=== PATIENT | female | born 1945 | race Caucasian/White ===

== ENCOUNTER 2017-01-15 07:00 | Inpatient (IN) | payer OTHER, MEDICARE ==
[~2017-01-15] VITALS: Ht 152.4 cm; Wt 102.1 kg
[~2017-01-15 07:00] MED LIST: ACETAMINOPHEN/H1 TAB PO; ALBUTEROL0.09 MG/A1 INH; ATORVASTATIN CA20 MG PO; BUFFERIN LOW DO81 MG PO; COUMADIN 2.5 M2.5 MG PO; COUMADIN 5 MG TA5 MG PO; COZAAR 50MG TAB50 MG PO; DOK100 M1 PO; ESCITALOPRAM10 MG PO; GABAPENTIN TAB600 MG PO; MASON NATURAL325 MG PO; METFORMIN HCL500 M4 PO; METOPROLOL SUCC50 M1 PO; PREDNISONE 10MG10 M1 PO; TYLENOL TAB 32325 MG PO; ULTRAM(MONOGRAP50 MG PO; VITAB121000 SL; VITAMIN D3 202000 IU PO; VITAMIN D32000 IU PO
[2017-02-16] MEDS ORDERED: ASPIRIN325 M2 PO (14:04)
[2017-02-16] MEDS ORDERED: GABAPENTIN600 M1 PO (14:04)
[2017-02-16] MEDS ORDERED: ESCITALOPRAM OX20 MG PO (14:05)
[2017-02-16] MEDS ORDERED: ATORVASTATIN CA40 M1 PO (14:05)
--- NOTE | 2017-02-20 11:19 | Admission Core Measures ---
Admission Meds I reviewed the following Meds: Current Medications Sig/Marion Start time Last Medication Dose Stop Time Status Admin Hydromorphone HCl 2 MG Q4P PRN 02/20 1030 UNVr (Dilaudid) Morphine Sulfate 2 MG Q4P PRN 02/20 1030 AC (Morphine) Ondansetron HCl 4 MG Q6P PRN 02/20 1030 AC (Zofran) Phenylephrine HCl 40 MG Q16H PRN 02/20 1115 AC (Neosynephrine Drip (Phenylephrine)) Sodium Chloride 250 ML (Normal Saline 0.9%) Sodium Chloride 1,000 ML Q13H 02/20 1030 AC (Normal Saline 0.9%) Sodium Nitroprusside 50 MG Q24H PRN 02/20 1115 AC (Nipride (Nitroprusside) DRIP) Dextrose/Water 250 ML (Dextrose 5%) Acute Coronary Syndrome Inclusion Criteria ACS Diagnosis No Inpatient Core Measures LDL Reminder: If No, please order W/I first 24hr of stay Congestive Heart Failure Inclusion Criteria CHF Diagnosis No Cerebrovascular accident Inclusion Criteria CVA/TIA Diagnosis No Inpatient Core Measures Bedside Swallow Eval Reminder: If BSE failed, place ST order Antithrombotic Reminder: Order Antithrombotic Medication by end of day 2 Antithrombotic Reminder: Document Reason Antithrombotic Not ordered by end of day 2 AFIB/Flutter Reminder: If Present, add to problem list AFIB/Flutter Reminder: Order Anticoag Medication for pts with AFIB/Flutter Atherosclerosis Reminder: If Present, add to problem list LDL Reminder: If No, please order W/I first 24hr of stay PT Order Reminder: If No, please order Venous thromboembolism Inpatient Core Measures VTE Risk Factors: Age > 40, Surgery No [facility] VTE prophylaxis d/t No contraindications No VTE Pharm Prophylaxis d/t No contraindications Inclusion Criteria - Per Current guidelines, there needs to be overlap - treatment for the first 5 days of Warfarin therapy. - Parenteral Anticoagulation (IV or SC) needs to be - given along with Warfarin therapy. VTE Diagnosis No VTE Type NONE VTE Confirmed by (Test) NONE Problem List As ranked by this Provider includes Assessment & Plan 1. Carotid stenosis HOME MEDS Home Med List Aspirin (Aspirin*) 325 MG TABLET 1 TAB PO DAILY CAD (Reported) Atorvastatin Calcium 40 MG TABLET 1 TAB PO DAILY CHOLESTEROL (Reported) Escitalopram Oxalate 20 MG TABLET 1 TAB PO DAILY ANXIETY (Reported) Gabapentin 600 MG TABLET 1 TAB PO NIGHTLY NEUROPATHY (Reported) Losartan (Cozaar) 50 MG TAB 1 TAB PO DAILY BLOOD PRESSURE (Reported) Metformin HCl (Metformin HCl ER) 500 MG TAB.ER.24H 1 TAB PO DAILY DIABETES ( Reported) Metoprolol Succinate (Metoprolol Succinate XL) 50 MG TAB.ER.24H 1 TAB PO DAILY BLOOD PRESSURE (Reported)
--- NOTE | 2017-02-20 13:18 | Operative Report ---
Operative/Inv Procedure Report Surgery Date: 02/20/17 Name of Procedure: Right carotid thromboendarterectomy with bovine patch angioplasty Pre-Operative Diagnosis: Symptomatic high-grade right-sided carotid stenosis Post-Operative Diagnosis: same Estimated Blood Loss: less than 50ml Surgeon/Real Estate Assistant: GEREMIAS BURT MD, SHAHMOHAMMADI MD, KAVEH (asst.-Mod. 82) Anesthesia: general endotracheal tube Operative Indication: 71-year-old female with a history of visual changes including amaurosis fugax consistent with symptomatic carotid disease. This occurred in her right eye several months ago. It has not recurred. She has been on antiplatelet therapy since then. Here for carotid endarterectomy of the right side. Risks benefits and alternatives explained including bleeding and infection stroke and . She decided to consent to the procedure. Operative/Procedure Note Note: Patient brought to the operating room and laid supine on the table. A timeout was held accordance with hospital policy. Of note the patient was noted to have a high carotid bifurcation on ultrasound and CAT scan and an appropriate resident was not available for the case. Therefore an medical assistant instructor surgeon was required. Sharp dissection was carried down through subcutaneous tissue along the border of the sternocleidomastoid with a 15 blade and Bovie electrocautery. The tissue was dissected free. The carotid sheath was entered. The common, external and internal carotid artery were circumferentially controlled. Patient was given 6000 units of heparin. The blood pressure was kept elevated and the artery was opened and clamped. Excellent backbleeding was noted. An 11- blade and Pruett scissors were used to open the artery. A Ware elevator was used to remove the plaque. It was passed off the field. Debris was removed from the intima with ring forceps. Saline was used to irrigate the area. A bovine pericardial patch was then sewed on the anterior surface of the artery in a running circumferential manner. 2 Prolene stat tacking sutures were used to tack down the distal carotid intima. It was tied down with 6-0 Prolene. All occluding clamps were removed. Pulsatile flow was noted into the area. Good diastolic flow was noted. 2 interrupted Prolene sutures were used for hemostasis. A Doppler was used to confirm good diastolic flow into the internal carotid artery. Gelfoam and thrombin were placed on the wound and artery. 2 our 3-0 Vicryl sutures were used to close the deep tissue and platysma. The skin was closed with gopi. She awoke from anesthesia neurologically intact. The sponge, needle and instrument counts were correct. The patient was transported to the recovery room.
[2017-02-20 13:45] VITALS: BP 196/120
--- NOTE | 2017-02-20 14:15 | PN- Vascular Surgery ---
Subjective Subjective: POST OP CHECK Patient resting comfortably in bed. No complaints of nausea, vomiting, fever, chills, CP/SOB. Denies dizziness, lightheadedness or headache. Yet to ambulate. Spontaneously voiding. Objective Vital Signs and I&Os BP 190s Physical Exam: Gen: AAOx3 in NAD HEENT: no tongue deviation, no slurred speech, smile symmetric, able to shrug shoulders, able to puff cheeks, dressing C/D/I. NO evidence of soft tissue mass to suggest hematoma. Cor: S1+S2+ Lungs: CTA angeles Abd: soft, NT, ND, +BS x4 Ext: no edema or calf tenderness to angeles lower extremities. palpable DP pulses angeles. feet warm. Sensation/motor exam grossly intact. Current Medications: Current Medications Sig/Marion Start time Last Medication Dose Route Stop Time Status Admin Hydromorphone HCl 2 MG Q4P PRN 02/20 1030 AC PO Morphine Sulfate 2 MG Q4P PRN 02/20 1030 AC IV Ondansetron HCl 4 MG Q6P PRN 02/20 1030 AC IV Phenylephrine HCl 40 MG Q16H PRN 02/20 1115 AC Sodium Chloride 250 ML IV Phenylephrine HCl 40 MG Q16H 02/20 1045 DC Sodium Chloride 250 ML IV Sodium Chloride 1,000 ML Q13H 02/20 1030 AC IV Sodium Nitroprusside 50 MG Q24H PRN 02/20 1115 AC Dextrose/Water 250 ML IV Sodium Nitroprusside 50 MG Q24H 02/20 1045 DC Dextrose/Water 250 ML IV Assessment/Plan Assessment/Plan A: s/p right CEA; hypertensive. Plan: Start Nipride gtt. Titrate for SBP <180. Advance diet as tolerated. OOB and ambulate as tolerated. Neurovascular checks q1h. Stop IVF. Core Measures/Miscellaneous Venous Thromboembolism VTE Risk Factors: Age > 40, Surgery VTE Contraindications: No Contraindications VTE Diagnosis: No VTE Type: NONE VTE Confirmed by (Test): NONE Beta Shayne Is Beta Shayne a Home Med? Yes Antibiotics Is Patient on Antibiotics? No
[2017-02-20 16:00] VITALS: BP 130/70
--- NOTE | 2017-02-20 16:09 | Patient Discharge Instructions ---
See Addendum Discharge Instructions General Discharge Information You were seen/treated for: carotid stenosis You had these procedures: carotid endarterectomy Watch for these problems: increased pain, redness, drainage, fever greater than 101F Call Surgeon to remove: Jennifer Do not soak the wound: Yes Daily wet to dry dressings: No No bath, but you may shower: Yes Other wound care: Remove neck dressing 2 days post operatively. You may then shower. Pat incision dry. Diet Continue normal diet: Yes Recommended Diet: Diabetic Activity Full Activity/No Limits: Yes Pounds, do NOT lift more than: 10 Acute Coronary Syndrome Inclusion Criteria At DC or during hospital stay patient has or had the following: ACS DIAGNOSIS No Discharge Core Measures Meds if any: Prescribed or Continued at Discharge Meds if any: NOT Prescribed or Continued at Discharge Congestive Heart Failure Inclusion Criteria At DC or during hospital stay patient has or had the following: CHF DIAGNOSIS No Discharge Core Measures Meds if any: Prescribed or Continued at Discharge Meds if any: NOT Prescribed or Continued at Discharge Cerebrovascular accident Inclusion Criteria At DC or during hospital stay patient has or had the following: CVA/TIA Diagnosis No Discharge Core Measures Meds if any: Prescribed or Continued at Discharge Meds if any: NOT Prescribed or Continued at Discharge Venous thromboembolism Inclusion Criteria VTE Diagnosis No VTE Type NONE VTE Confirmed by (Test) NONE Discharge Core Measures - Per Current guidelines, there needs to be overlap - treatment for the first 5 days of Warfarin therapy. - If discharged on Warfarin prior to 5 days of - overlap therapy, the patient will need to be - assessed for post discharge needs including - *Post discharge parental anticoagulation - *Warfarin and/or parental anticoagulation education - *Follow up date to check INR post discharge At least 5 days overlap therapy as Inpatient No Meds if any: Prescribed or Continued at Discharge Note: Overlap Therapy is Warfarin and Anticoagulant Meds if any: NOT Prescribed or Continued at Discharge
[2017-02-20] MEDS ORDERED: HYDROMORPHONE HC2 M1 PO (16:11)
--- NOTE | 2017-02-20 16:17 | Surg Short-stay <48hrs Dis Sum ---
See Addendum Visit Information Visit Dates Admission Date: 02/20/17 Discharge Date: 02/23/17 Surgical Short Stay DC Summary Admission Diagnosis: carotid stenosis Final Diagnosis: carotid stenosis r/o cva, mandibular nerve Procedure(s): right carotid endarterectomy Summary/Significant Findings: Mrs. Gr is a 71 year old female with diabetes, hypertension and hyperlipidemia. She was found to have a significant carotid stenosis on the right side. Electively, she was taken to the OR on 02/20/17 and underwent a right carotid endarterectomy by Dr. Garcia. Postoperatively, she was transferred to the intensive care unit in stable condition. Neurovascular checks were performed every hour. She was able to void spontaneously. Nipride was used intermittently to keep her SBP less than 180. On POD #1, her family noticed that her speech seemed slightly slurred. The patient was noted to have a slight droop involving her left lip, and a stroke alert was called. She had a noncontrast CT along with a CTA of her head and neck , which did not show any acute abnormalities. was called at the time of the stroke alert and updated with the report. 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 saw her in co-management as well. Her home blood pressure medications were continued. Aspirin was restarted and plavix was added daily. She was downgraded to gen med after ruled out for stroke, and observed another night. Her blood pressure continue to remain labile and remained hypertensive intermitantly with systolic blood pressure ranging high 180-190's.she was intiated on additional blood pressure medication at a low dose per recommendation. Her bloood pressure improved with addtion on amlodipine 2.5 mg inaddition to her home medications. Once her blood pressurewas controlled it was determined that she will be discharged home. Please see full dictated discharge summary. Condition at Discharge: stable Discharge Disposition: home or self care Discharge instructions provided to patient/family: Yes Post discharge follow-up plan: Dr. Garcia call for appointment
[2017-02-21] VITALS: BP 134/80
--- NOTE | 2017-02-21 05:29 | PN- Vascular Surgery ---
Subjective Subjective: Postoperative day 1 status post right carotid endarterectomy. Patient with complaints of mild pain to the right side of the neck. No difficulty swallowing , she is tolerating fluids well. No complaints of neurologic symptoms, weakness , numbness, aphasia. She feels well. She had mild blood pressure problems yesterday evening however these have resolved. Objective Vital Signs and I&Os Vital Signs Date Time Temp Pulse Resp B/P Pulse O2 O2 Flow FiO2 Ox Delivery Rate 02/21 0400 94 Nasal 1.0L Cannula 02/21 0000 98 Nasal 2.0L Cannula 02/20 2000 95 Nasal 3.0L Cannula 02/20 1600 97.1 63 17 130/70 94 Nasal 3.0L Cannula 02/20 1345 97.4 74 14 196/120 97 Nasal 2.0L Cannula 02/20 1345 97 Nasal 3.0L Cannula Intake & Output 02/21 0800 02/21 0000 02/20 1600 02/20 0800 02/20 0000 02/19 1600 Intake Total 838 360 Output Total 1150 700 Balance -312 -340 Intake, IV 598 160 Intake, Oral 240 200 Number 0 Bowel Movements Output, Urine 1150 700 Patient 225 lb Weight Physical Exam: Gen: AAOx3 in NAD HEENT: no tongue deviation, no slurred speech, smile symmetric, able to shrug shoulders, able to puff cheeks, dressing C/D/I. small amount of swelling noted proximal incision region. No significant hematoma. Trachea is midline Heart: S1+S2+ Lungs: CTA angeles Abd: soft, NT, ND, +BS x4 Ext: no edema or calf tenderness to angeles lower extremities. palpable DP pulses angeles. feet warm. Sensation/motor exam grossly intact. Assessment/Plan Assessment/Plan Postop day #1 status post right carotid endarterectomy -Patient stable for discharge home, blood pressure under control, no neurologic symptoms. Patient will follow-up in office as outpatient, she already has appointment. She will resume her usual blood pressure medication. Core Measures/Miscellaneous Venous Thromboembolism VTE Risk Factors: Age > 40, Surgery VTE Contraindications: No Contraindications VTE Diagnosis: No VTE Type: NONE VTE Confirmed by (Test): NONE Beta Shayne Is Beta Shayne a Home Med? Yes Antibiotics Is Patient on Antibiotics? No
[2017-02-21 06:03] LABS: ABSOLUTE BASOPHIL COUNT 0 /CUMM (0.0-0.2); ABSOLUTE EOSINOPHIL COUNT 0 /CUMM (0.0-0.7); ABSOLUTE GRANULOCYTE CT 4.8 /CUMM (1.4-6.5); ABSOLUTE LYMPH COUNT 1.3 /CUMM (1.2-3.4); ABSOLUTE MONOCYTE COUNT 0.6 /CUMM (0.10-0.60); BASOPHIL % 0.5 % (0.0-2.0); EOSINOPHIL % 0.6 % (0-5); GRANULOCYTE % 70.5 % (42.2-75.2); MEAN CORPUSCULAR HGB 27.4 PG (27.0-31.0); MEAN CORPUSCULAR HGB CONC 32.7 G/DL (33.0-37.0); MEAN CORPUSCULAR VOLUME 83.7 FL (81.0-99.0); MEAN PLATELET VOLUME 10.1 FL (7.4-10.4); PLATELET COUNT 121 /CUMM (130-400); RBC DISTRIBUTION WIDTH 14.5 % (11.5-14.5); WHITE BLOOD CELL COUNT 6.8 /CUMM (4.8-10.8)
[2017-02-21 08:00] VITALS: BP 160/74
--- NOTE | 2017-02-21 08:32 | Event Note ---
Event Note Event Note: called by nurse to evaluate "slurred speech", which apparently the family had appreciated when visiting her earlier this morning between 6 and 6:30 am, which was not communicated to the staff until 7:30ish. She reports difficulty speaking, which she does not describe as trouble with word finding. She believes this is a new development, which she did not notice until her family mentioned it to her this morning. Otherwise she reports some incisional related discomfort, involving the right side of her neck. No headache. No dizziness. No shortness of breath. vitals stable at time of eval subtle slurred speech noted. left sided facial droop noted. tongue deviating to right. otherwise upper and lower extremity strength equal. stroke alert called. spoke with and regarding the above. following stroke alert protocol. noncontrast CT head, followed by cta head/neck per . seen by this morning critical care consult per , treat sbp>100 continue asa [address] scans in progress
--- NOTE | 2017-02-21 08:34 | Cons- CRCU ---
KEIKO TRIPATHI 02/21/17 0834: General Information and HPI Consulting Request Date of Consult: 02/21/17 Source of Information: patient, old records Exam Limitations: no limitations History of Present Illness: The patient is a 71-year-old female with a history of hypertension, type 2 diabetes, and bioprosthetic aortic valve replacement in 2013 (paroxysmal A. fib at the time of surgery but no arrhythmia subsequently per Dr. Marie). The patient was evaluated by Dr. keen in the office for amaurosis fugax. Subsequently she had right carotid endarterectomy on 02/20/17. This morning around 6 AM when family was at the patient, they noticed that patient had a slurred speech and left-sided facial droop. A stroke alert was called and the surgical PA spoke with Dr. Hall who recommended a CT head with CTA head and neck. Patient did not notice any change in her speech by herself. Allergies/Medications Allergies: Coded Allergies: adhesive (Intermediate, RASH 02/16/17) oxycodone (NAUSEA 08/07/16) Home Med List: Aspirin (Aspirin*) 325 MG TABLET 1 TAB PO DAILY CAD (Reported) Atorvastatin Calcium 40 MG TABLET 1 TAB PO DAILY CHOLESTEROL (Reported) Clopidogrel Bisulfate (Plavix) 75 MG TABLET 75 MG PO DAILY antiplatelet take daily, in addition to aspirin. continue as per Escitalopram Oxalate 20 MG TABLET 1 TAB PO DAILY ANXIETY (Reported) Gabapentin 600 MG TABLET 1 TAB PO NIGHTLY NEUROPATHY (Reported) Hydromorphone HCl 2 MG TABLET 2 MG PO Q4P PRN PAIN Losartan (Cozaar) 50 MG TAB 1 TAB PO DAILY BLOOD PRESSURE (Reported) Metformin HCl (Metformin HCl ER) 500 MG TAB.ER.24H 1 TAB PO DAILY DIABETES ( Reported) Metoprolol Succinate (Metoprolol Succinate XL) 50 MG TAB.ER.24H 1 TAB PO DAILY BLOOD PRESSURE (Reported) Current Medications: Current Medications Sig/Marion Start time Last Medication Dose Route Stop Time Status Admin Acetaminophen 1,000 MG Q6H 02/21 0945 AC 02/21 N/A 1 UNIT IV 02/22 0359 1014 Aspirin 325 MG DAILY 02/20 1023 AC 02/21 PO 1007 Atorvastatin Calcium 40 MG 1700 02/20 1700 AC 02/20 PO 1734 Clopidogrel Bisulfate 75 MG DAILY 02/21 1000 AC 02/21 PO 1328 Dextrose/Sodium 1,000 ML Q13H 02/21 2326 DC 02/21 Chloride IV 1023 Docusate Sodium 100 MG BID 02/21 2200 AC PO Escitalopram Oxalate 20 MG DAILY 02/21 1000 AC 02/21 PO 1009 Gabapentin 600 MG AT BEDTIME 02/20 2200 AC 02/20 PO 2109 Heparin Sodium 5,000 UNIT Q8 02/20 1400 AC 02/21 (Porcine) SC 1328 Hydromorphone HCl 2 MG Q4P PRN 02/20 1030 AC 02/21 PO 0035 Losartan Potassium 50 MG DAILY 02/21 1000 AC 02/21 PO 1040 Metoprolol Succinate 50 MG DAILY 02/21 1000 AC 02/21 PO 1011 Morphine Sulfate 2 MG Q4P PRN 02/20 1030 AC IV Nitroglycerin 1 GM ONCE PRN 02/20 2100 AC TOP Ondansetron HCl 4 MG Q6P PRN 02/20 1030 AC IV Phenylephrine HCl 40 MG Q16H PRN 02/20 1115 DC Sodium Chloride 250 ML IV Sodium Chloride 1,000 ML Q13H 02/20 1030 DC 02/21 IV 0035 Sodium Nitroprusside 50 MG Q24H PRN 02/20 1115 DC 02/20 Dextrose/Water 250 ML IV 1345 Review of Systems Review of Systems Constitutional: Reports: see HPI. EENTM: Reports: see HPI. Cardiovascular: Reports: see HPI. Respiratory: Reports: see HPI. GI: Reports: see HPI. Genitourinary: Reports: see HPI. Musculoskeletal: Reports: see HPI. Skin: Reports: see HPI. 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: C-SECTIONS X4 Surgical History Surgical History: non-contributory Psychosocial History Services at Home: None Smoking Status: Former Smoker Exam & Diagnostic Data Last 24 Hrs of Vital Signs/I&O Vital Signs Date Time Temp Pulse Resp B/P Pulse O2 O2 Flow FiO2 Ox Delivery Rate 02/21 1040 66 156/55 02/21 1011 68 156/55 02/21 0800 95 02/21 0800 97.2 74 20 160/74 95 Room Air 02/21 0400 94 Nasal 1.0L Cannula 04/12 0000 98.6 64 14 134/80 99 Nasal 3.0L Cannula 02/21 0000 98 Nasal 2.0L Cannula 02/20 2000 95 Nasal 3.0L Cannula 02/20 1600 97.1 63 17 130/70 94 Nasal 3.0L Cannula Intake & Output 02/21 1600 02/21 0800 02/21 0000 Intake Total 639 838 Output Total 1000 1150 Balance -361 -312 Intake, IV 519 598 Intake, Oral 120 240 Output, Urine 1000 1150 Physical Exam General Appearance: well developed/nourished, no apparent distress, alert, awake , comfortable Head: atraumatic, normal appearance Eyes: Bilateral: normal appearance. Neck: normal inspection, supple, full range of motion Respiratory: normal breath sounds Cardiovascular: regular rate/rhythm Gastrointestinal: soft, non-tender, no organomegaly Last 48 Hrs of Labs/Otoniel: Laboratory Tests 02/21/17 1012: PT 12.3, INR 1.17 02/21/17 0415: Anion Gap 6, Estimated GFR > 60, BUN/Creatinine Ratio 18.6, Glucose 91, Phosphorus 4.2, Magnesium 1.7, Total Bilirubin 0.4, Direct Bilirubin 0.3, AST 20 , ALT 34, Alkaline Phosphatase 114, Troponin I < 0.01, Total Protein 6.2 L, Albumin 3.1 L, CBC w Diff NO MAN DIFF REQ, RBC 3.70 L, MCV 83.7, MCH 27.4, RDW 14.5, MPV 10.1, Gran % 70.5, Lymphocytes % 19.0 L, Monocytes % 9.4 H, Eosinophils % 0.6, Basophils % 0.5, Absolute Granulocytes 4.8, Absolute Lymphocytes 1.3, Absolute Monocytes 0.6, Absolute Eosinophils 0, Absolute Basophils 0, PUBS MCHC 32.7 L Assessment/Plan Impression/Plan: The patient is a 71-year-old female with a history of hypertension, type 2 diabetes, and bioprosthetic aortic valve replacement in 2013 (paroxysmal A. fib at the time of surgery but no arrhythmia subsequently per Dr. Marie). The patient was evaluated by Dr. keen in the office for amaurosis fugax. Subsequently she had right carotid endarterectomy on 02/20/17. This morning around 6 AM when family was at the patient, they noticed that patient had a slurred speech and left-sided facial droop. A stroke alert was called and the surgical PA spoke with Dr. Hall who recommended a CT head with CTA head and neck. Patient did not notice any change in her speech by herself. CT head\CTA head and neck There are expected postoperative changes related to a recent right carotid endarterectomy. There is no high-grade stenosis or intraluminal filling defect within the right common carotid artery or the extracranial internal carotid. There does however appear to be a flap versus a high-grade narrowing of the proximal right external carotid artery. Heavily calcified atheromatous plaque involving the left carotid bifurcation causes at least 50% stenosis of the left internal carotid artery at its origin. The CT angiogram of the head is unremarkable with no evidence of high-grade stenosis or proximal large vessel occlusion. Putnam-white matter differentiation is grossly preserved and there is no evidence of acute territorial ischemia. Assessment and PLan will continue to monitor in ICU Q1 neuro cehcks Neurology consult service on board, will f/up their recommendations Will start her 325 mg of aspirin plavix 75 mg daily Will monitor her BP and treat if > 200 DVT ppx mechanical will follow up swallow evaluation Consult Acknowledgment - Thank you for your consult request. YVONNE VALDEZ,Nicolasa RANKIN 02/21/17 0938: General Information and HPI Consulting Request Date of Consult: 02/21/17 Requested By: Dr. Garcia Reason for Consult: CRCU management Source of Information: patient, old records Exam Limitations: no limitations Allergies/Medications Current Medications: Current Medications Sig/Marion Start time Last Medication Dose Route Stop Time Status Admin Acetaminophen 1,000 MG Q6H 02/21 0945 UNVr N/A 1 UNIT IV 02/22 0359 Aspirin 325 MG DAILY 02/20 1023 AC PO Atorvastatin Calcium 40 MG 1700 02/20 1700 AC 02/20 PO 1734 Escitalopram Oxalate 20 MG DAILY 02/21 1000 AC PO Gabapentin 600 MG AT BEDTIME 02/20 2200 AC 02/20 PO 2109 Heparin Sodium 5,000 UNIT Q8 02/20 1400 AC 02/21 (Porcine) SC 0628 Hydromorphone HCl 2 MG .STK-MED ONE 02/20 1210 DC IM 02/20 1211 Hydromorphone HCl 2 MG Q4P PRN 02/20 1030 AC 02/21 PO 0035 Losartan Potassium 50 MG DAILY 02/21 1000 AC PO Metoprolol Succinate 50 MG DAILY 02/21 1000 AC PO Morphine Sulfate 2 MG Q4P PRN 02/20 1030 AC IV Nitroglycerin 1 GM ONCE PRN 02/20 2100 AC TOP Ondansetron HCl 4 MG Q6P PRN 02/20 1030 AC IV Phenylephrine HCl 40 MG Q16H PRN 02/20 1115 AC Sodium Chloride 250 ML IV Phenylephrine HCl 40 MG Q16H 02/20 1045 DC Sodium Chloride 250 ML IV Sodium Chloride 1,000 ML Q13H 02/20 1030 DC 02/21 IV 0035 Sodium Nitroprusside 50 MG Q24H PRN 02/20 1115 AC 02/20 Dextrose/Water 250 ML IV 1345 Sodium Nitroprusside 50 MG Q24H 02/20 1045 DC Dextrose/Water 250 ML IV Assessment/Plan Other Findings/Comments: I have personally seen and examined the patient, and agree with the resident's assessment and plan as detailed above. The patient has a history of hypertension and amaurosis fugax. The patient underwent a right carotid endarterectomy yesterday without complications. This morning, nursing alerted the surgical team that the patient had slurred speech and a facial droop. This was observed by the patient's family. There were no other focal findings. She had no headache, blurred vision, dizziness, shortness of breath, or chest pain. Her only complaint was some mild incisional pain. The patient's vital signs were stable throughout. A stroke alert was called and neurology and vascular surgery informed about the findings. A noncontrast CT of the head was performed , followed by a CTA of the head and neck. The CAT scan failed to demonstrate any acute ischemia. There was nothing unexpected postoperatively as per radiology. The patient will be treated with aspirin 325 mg daily. We will hold Plavix until neurology approves. Cardiology has been consulted. We will monitor the patient's blood pressure and treat her for systolic blood pressure greater than 200. The patient will continue to have neuro checks and be monitored in the critical care unit. She will have DVT prophylaxis (mechanical) at all times. Will check a swallowing evaluation. Continue with pain control. We'll follow up cardiology, neurology and vascular surgery recommendations. Thank you for the consult. We will follow and provide further recommendations as necessary. Consult Acknowledgment - Thank you for your consult request.
--- NOTE | 2017-02-21 08:39 | Cons- Cardiology ---
General Information and HPI Consulting Request Date of Consult: 02/21/17 Requested By: GEREMIAS BURT MD Reason for Consult: POSSIBLE POST OP NEUROLOGIC EVENT Source of Information: patient, old records History of Present Illness: The patient is a very nice 71-year-old female who is well-known to me. Patient has a history of prior bioprosthetic aortic valve replacement in 2013. At the time of the surgery she had brief paroxysmal atrial fibrillation but has had no arrhythmias since that time. The patient was recently seen by me in the office with episodes of amaurosis. A follow-up carotid ultrasound documented worsening of her right carotid disease and yesterday, she had a right carotid endarterectomy performed. This morning, the patient was noted by her family to have some speech difficulties. In view of this fact, further evaluation has been instituted including a head CT, CT of the head and neck, neurology input, etc. Full evaluation and results are pending. Otherwise, the patient denies any other symptoms. She has had no cardiac basilar symptoms. There have been no arrhythmias noted on the monitor. Allergies/Medications Allergies: Coded Allergies: adhesive (Intermediate, RASH 02/16/17) oxycodone (NAUSEA 08/07/16) Home Med List: Aspirin (Aspirin*) 325 MG TABLET 1 TAB PO DAILY CAD (Reported) Atorvastatin Calcium 40 MG TABLET 1 TAB PO DAILY CHOLESTEROL (Reported) Clopidogrel Bisulfate (Plavix) 75 MG TABLET 75 MG PO DAILY antiplatelet take daily, in addition to aspirin. continue as per Escitalopram Oxalate 20 MG TABLET 1 TAB PO DAILY ANXIETY (Reported) Gabapentin 600 MG TABLET 1 TAB PO NIGHTLY NEUROPATHY (Reported) Hydromorphone HCl 2 MG TABLET 2 MG PO Q4P PRN PAIN Losartan (Cozaar) 50 MG TAB 1 TAB PO DAILY BLOOD PRESSURE (Reported) Magnesium Oxide 400 MG TABLET 1 TAB PO DAILY magnesium supp. Metformin HCl (Metformin HCl ER) 500 MG TAB.ER.24H 1 TAB PO DAILY DIABETES ( Reported) Metoprolol Succinate (Metoprolol Succinate XL) 50 MG TAB.ER.24H 1 TAB PO DAILY BLOOD PRESSURE (Reported) Current Medications: Current Medications Sig/Marion Start time Last Medication Dose Route Stop Time Status Admin Aspirin 325 MG DAILY 02/20 1023 AC PO Atorvastatin Calcium 40 MG 1700 02/20 1700 AC 02/20 PO 1734 Escitalopram Oxalate 20 MG DAILY 02/21 1000 AC PO Gabapentin 600 MG AT BEDTIME 02/20 2200 AC 02/20 PO 2109 Heparin Sodium 5,000 UNIT Q8 02/20 1400 AC 02/21 (Porcine) SC 0628 Hydromorphone HCl 2 MG .STK-MED ONE 02/20 1210 DC IM 02/20 1211 Hydromorphone HCl 2 MG Q4P PRN 02/20 1030 AC 02/21 PO 0035 Losartan Potassium 50 MG DAILY 02/21 1000 AC PO Metoprolol Succinate 50 MG DAILY 02/21 1000 AC PO Morphine Sulfate 2 MG Q4P PRN 02/20 1030 AC IV Nitroglycerin 1 GM ONCE PRN 02/20 2100 AC TOP Ondansetron HCl 4 MG Q6P PRN 02/20 1030 AC IV Phenylephrine HCl 40 MG Q16H PRN 02/20 1115 AC Sodium Chloride 250 ML IV Phenylephrine HCl 40 MG Q16H 02/20 1045 DC Sodium Chloride 250 ML IV Sodium Chloride 1,000 ML Q13H 02/20 1030 DC 02/21 IV 0035 Sodium Nitroprusside 50 MG Q24H PRN 02/20 1115 AC 02/20 Dextrose/Water 250 ML IV 1345 Sodium Nitroprusside 50 MG Q24H 02/20 1045 DC Dextrose/Water 250 ML IV Past History Medical History Neurological: NONE EENT: NONE Cardiovascular: hyperlipidemia, VALVE REPLACEMENT Respiratory: NONE Gastrointestinal: GASTRIC BYPASS Hepatic: NONE Renal: NONE Musculoskeletal: RT AND LT TOTAL KNEE SPINAL STENOSIS Psychiatric: NONE Endocrine: diabetes Blood Disorders: NONE Cancer(s): 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-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 X4 Surgical History Surgical History: non-contributory Psychosocial History Services at Home: None Smoking Status: Former Smoker Exam & Diagnostic Data Vital Signs and I&O Vital Signs Date Time Temp Pulse Resp B/P Pulse O2 O2 Flow FiO2 Ox Delivery Rate 02/21 0400 94 Nasal 1.0L Cannula 02/21 0000 98.6 64 14 134/80 99 Nasal 3.0L Cannula 02/21 0000 98 Nasal 2.0L Cannula 02/20 2000 95 Nasal 3.0L Cannula 02/20 1600 97.1 63 17 130/70 94 Nasal 3.0L Cannula 02/20 1345 97.4 74 14 196/120 97 Nasal 2.0L Cannula 02/20 1345 97 Nasal 3.0L Cannula Intake & Output 02/21 02/21 0802/21 0000 02/20 0802/20 0000 Intake Total 639 838 360 Output Total 1000 1150 700 Balance -361 -312 -340 Intake, IV 519 598 160 Intake, Oral 120 240 200 Number 0 Bowel Movements Output, Urine 1000 1150 700 Patient 225 lb Weight Labs/Otoniel Results: Laboratory Tests 02/21 0415 Chemistry Sodium (137 - 145 mmol/L) 140 Potassium (3.5 - 5.1 mmol/L) 4.3 Chloride (98 - 107 mmol/L) 104 Carbon Dioxide (22 - 30 mmol/L) 29 Anion Gap (5 - 16) 6 BUN (7 - 17 mg/dL) 13 Creatinine (0.5 - 1.0 mg/dL) 0.7 Estimated GFR (>60 ml/min) > 60 BUN/Creatinine Ratio (7 - 25 %) 18.6 Glucose (65 - 99 mg/dL) 91 Phosphorus (2.5 - 4.5 mg/dL) 4.2 Magnesium (1.6 - 2.3 mg/dL) 1.7 Total Bilirubin (0.2 - 1.3 mg/dL) 0.4 Direct Bilirubin (< 0.4 mg/dL) 0.3 AST (14 - 36 U/L) 20 ALT (9 - 52 U/L) 34 Alkaline Phosphatase (<127 U/L) 114 Troponin I (< 0.11 ng/ml) Pending Total Protein (6.3 - 8.2 g/dL) 6.2 L Albumin (3.5 - 5.0 g/dL) 3.1 L Hematology CBC w Diff NO MAN DIFF REQ WBC (4.8 - 10.8 /CUMM) 6.8 RBC (4.20 - 5.40 /CUMM) 3.70 L Hgb (12.0 - 16.0 G/DL) 10.1 L Hct (37 - 47 %) 31.0 L MCV (81.0 - 99.0 FL) 83.7 MCH (27.0 - 31.0 PG) 27.4 RDW (11.5 - 14.5 %) 14.5 Plt Count (130 - 400 /CUMM) 121 L MPV (7.4 - 10.4 FL) 10.1 Gran % (42.2 - 75.2 %) 70.5 Lymphocytes % (20.5 - 51.1 %) 19.0 L Monocytes % (1.7 - 9.3 %) 9.4 H Eosinophils % (0 - 5 %) 0.6 Basophils % (0.0 - 2.0 %) 0.5 Absolute Granulocytes (1.4 - 6.5 /CUMM) 4.8 Absolute Lymphocytes (1.2 - 3.4 /CUMM) 1.3 Absolute Monocytes (0.10 - 0.60 /CUMM) 0.6 Absolute Eosinophils (0.0 - 0.7 /CUMM) 0 Absolute Basophils (0.0 - 0.2 /CUMM) 0 PUBS MCHC (33.0 - 37.0 G/DL) 32.7 L Assessment/Plan Assessment/Plan Assessment: 1. Perioperative Neurologic event 2. Day #1 post right CEA 3. History of bioprosthetic AVR 4. HTN 5. HLD 6. Mild normocytic anemia 7. Mild thrombocytopenia 8. History of PAF at time of AVR in 2013 Recommendations. 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 -Further plans after the above. Consult Acknowledgment - Thank you for your consult request.
--- NOTE | 2017-02-21 09:30 | CT SCAN REPORT ---
EXAMINATION: CT HEAD WO IV CONTRAST, CT HEAD ANGIOGRAM, CT NECK ANGIOGRAM CLINICAL INFORMATION: Evaluate for CVA. Status post right carotid endarterectomy. Slurred speech and facial droop. COMPARISON: MRI of the brain 08/31/2016. TECHNIQUE: Transfer Station Attendant images were obtained. A CT angiogram of the head and neck was performed in the arterial phase after the intravenous administration of 125 mL Optiray 350. Noncontrast images of the head were also obtained. MIP reconstructions were generated in multiple orientations at the acquisition workstation. Multiple three-dimensional surface rendered images and maximum intensity projection images were generated on a dedicated 3-D lab workstation. Total exam dose-length product 2116.68 mGy-cm FINDINGS: Head: Patient motion degrades image quality on this component of the examination therefore the diagnostic accuracy is somewhat limited. There is no acute intracranial hemorrhage or abnormal extra-axial collection. No intracranial mass effect or midline shift. Lateral and third ventricles are normal. No hydrocephalus. There are a few scattered nonspecific foci of hypoattenuation within the periventricular white matter that most likely represent a chronic manifestation of small vessel ischemia. Putnam-white matter differentiation is preserved and there is no evidence of acute territorial infarct. The calvarium and skull base are intact. Mastoid air cells and middle ear cavities are well aerated. Visualized paranasal sinuses are well-aerated. CT angiogram neck: There are recent postoperative changes related to a right carotid endarterectomy including irregularity of the lumen at the right carotid bifurcation. There is no active extravasation of contrast material. There is no high-grade stenosis within the right common carotid artery or cervical segment of the internal carotid artery. There does however appear to be a flap versus a high-grade narrowing at the proximal right external carotid artery for instance best illustrated on axial image 259 of 572 series 8. There is heavily calcified atherosclerotic plaque at the left carotid bifurcation. Due to the presence of motion artifact and beam hardening artifact it is difficult to definitively ascertain the degree of stenosis. There is at least 50% stenosis at the origin of the left internal carotid artery. The left common carotid artery is widely patent. The aortic arch apex is unremarkable and the origins of the major aortic branches are patent. Incidentally there is a four-vessel configuration of the arch with the left vertebral artery arising directly from the aorta. The cervical segments of the vertebral arteries as well as their origins are patent. CT angiogram head: There is calcified plaque involving the cavernous segments of both internal carotid arteries. The petrous, cavernous, and supraclinoid segments of internal carotid arteries are patent. The intradural vertebral artery segments and basilar artery are patent. The anterior, middle, and posterior cerebral artery complexes are unremarkable. There is no evidence of high-grade stenosis or proximal large vessel occlusion. Other: There are chronic changes of a median sternotomy. Advanced degenerative changes of both shoulders are noted. There is no acute osseous finding. There is multilevel degenerative spondylosis of the cervical spine with slight anterolisthesis of C3 on C4 related to advanced facet degenerative changes at this level. There appears be at least mild canal stenosis at the levels of C4-C5 and C5-C6 related to multifactorial degenerative changes. There is no worrisome lytic or blastic osseous lesion. IMPRESSION: There are expected postoperative changes related to a recent right carotid endarterectomy. There is no high-grade stenosis or intraluminal filling defect within the right common carotid artery or the extracranial internal carotid. There does however appear to be a flap versus a high-grade narrowing of the proximal right external carotid artery. Heavily calcified atheromatous plaque involving the left carotid bifurcation causes at least 50% stenosis of the left internal carotid artery at its origin. The CT angiogram of the head is unremarkable with no evidence of high-grade stenosis or proximal large vessel occlusion. Putnam-white matter differentiation is grossly preserved and there is no evidence of acute territorial ischemia. This critical result was discussed with Dr. Nicki Duarte at 02/21/2017 9:21 AM and it was ascertained that the content and urgency of the report was understood at the time of direct communication.
[2017-02-21 10:30] LABS: PT 12.3 SEC (9.4-12.5)
--- NOTE | 2017-02-21 11:53 | PN- Vascular Surgery ---
Surgical Brief Attending Note Brief Attending Note: VASCULAR ATTENDING NOTE: Pt. seen and examined now POD #1 s/p R. CEA. Pt. with ? change in speech reported this AM. However, she denies aphasia, weakness, or visual changes. PE: AF/VSS Neuro: No major focal weakeness/defecits, does have a small lip droop c/w marginal mandiblar nerve praxia from surgery/retraction - speech same as noted in PACU IMAGING: CT Head--negative--CTA Neck - No intimal disruption/stenosis of R. ICA A/P Transfer to floor--Pt. may resume diet Cont. antiplatelet Rx. Plan to discharge in AM with F/u 03/02 Neuro. 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
[2017-02-21] MEDS ORDERED: PLAVIX75 M1 PO (13:07)
--- NOTE | 2017-02-21 15:18 | Cons- Neurology ---
General Information and HPI Consulting Request Date of Consult: 02/21/17 Requested By: GEREMIAS BURT MD Reason for Consult: Left side weakness following right CEA Source of Information: patient, old records, ICU Staff Exam Limitations: no limitations History of Present Illness: 71 year old woman underwent a right carotid endarterectomy yesterday because of full episodes of transient right monocular vision loss. There was a known carotid stenosis which had increased in severity. Around 8 AM this morning she was noted to have a left lower facial droop and some weakness of the left arm. BP was elevated to the 180-190 systolic range. She had been off antithrombotic' s in preparation for surgery. At this time she feels much better but still reports some difficulty forming words. She had slight difficulty swallowing as well. No subjective weakness of either arm, no numbness or paresthesias of either side. No associated headache or visual disturbance History of prior bioprosthetic aortic valve replacement in 2013. At the time of the surgery she had brief paroxysmal atrial fibrillation but has had no arrhythmias since that time. Allergies/Medications Allergies: Coded Allergies: adhesive (Intermediate, RASH 02/16/17) oxycodone (NAUSEA 08/07/16) Home Med List: Aspirin (Aspirin*) 325 MG TABLET 1 TAB PO DAILY CAD (Reported) Atorvastatin Calcium 40 MG TABLET 1 TAB PO DAILY CHOLESTEROL (Reported) Clopidogrel Bisulfate (Plavix) 75 MG TABLET 75 MG PO DAILY antiplatelet take daily, in addition to aspirin. continue as per Escitalopram Oxalate 20 MG TABLET 1 TAB PO DAILY ANXIETY (Reported) Gabapentin 600 MG TABLET 1 TAB PO NIGHTLY NEUROPATHY (Reported) Hydromorphone HCl 2 MG TABLET 2 MG PO Q4P PRN PAIN Losartan (Cozaar) 50 MG TAB 1 TAB PO DAILY BLOOD PRESSURE (Reported) Metformin HCl (Metformin HCl ER) 500 MG TAB.ER.24H 1 TAB PO DAILY DIABETES ( Reported) Metoprolol Succinate (Metoprolol Succinate XL) 50 MG TAB.ER.24H 1 TAB PO DAILY BLOOD PRESSURE (Reported) Current Medications: Current Medications Sig/Marion Start time Last Medication Dose Route Stop Time Status Admin Acetaminophen 1,000 MG Q6H 02/21 0945 AC 02/21 N/A 1 UNIT IV 02/22 0359 1014 Aspirin 325 MG DAILY 02/20 1023 AC 02/21 PO 1007 Atorvastatin Calcium 40 MG 1700 02/20 1700 AC 02/20 PO 1734 Clopidogrel Bisulfate 75 MG DAILY 02/21 1000 AC 02/21 PO 1328 Dextrose/Sodium 1,000 ML Q13H 02/21 2326 DC 02/21 Chloride IV 1023 Docusate Sodium 100 MG BID 02/21 2200 AC PO Escitalopram Oxalate 20 MG DAILY 02/21 1000 AC 02/21 PO 1009 Gabapentin 600 MG AT BEDTIME 02/20 2200 AC 02/20 PO 2109 Heparin Sodium 5,000 UNIT Q8 02/20 1400 AC 02/21 (Porcine) SC 1328 Hydromorphone HCl 2 MG Q4P PRN 02/20 1030 AC 02/21 PO 0035 Losartan Potassium 50 MG DAILY 02/21 1000 AC 02/21 PO 1040 Metoprolol Succinate 50 MG DAILY 02/21 1000 AC 02/21 PO 1011 Morphine Sulfate 2 MG Q4P PRN 02/20 1030 AC IV Nitroglycerin 1 GM ONCE PRN 02/20 2100 AC TOP Ondansetron HCl 4 MG Q6P PRN 02/20 1030 AC IV Phenylephrine HCl 40 MG Q16H PRN 02/20 1115 DC Sodium Chloride 250 ML IV Sodium Chloride 1,000 ML Q13H 02/20 1030 DC 02/21 IV 0035 Sodium Nitroprusside 50 MG Q24H PRN 02/20 1115 DC 02/20 Dextrose/Water 250 ML IV 1345 Review of Systems Review of Systems: ROS: A complete medical systems review was obtained. No pertinent complaints were found. 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 X4 Surgical History Surgical History: non-contributory Psychosocial History Services at Home: None Smoking Status: Former Smoker Exam & Diagnostic Data Vital Signs and I&O Vital Signs Date Time Temp Pulse Resp B/P Pulse O2 O2 Flow FiO2 Ox Delivery Rate 02/21 1040 66 156/55 02/21 1011 68 156/55 02/21 0800 95 02/21 0800 97.2 74 20 160/74 95 Room Air 02/21 0400 94 Nasal 1.0L Cannula 02/21 0000 98.6 64 14 134/80 99 Nasal 3.0L Cannula 02/21 0000 98 Nasal 2.0L Cannula 02/21 2000 95 Nasal 3.0L Cannula 02/21 1600 97.1 63 17 130/70 94 Nasal 3.0L Cannula Intake & Output 02/21 1600 02/21 0800 02/21 0000 Intake Total 639 838 Output Total 1000 1150 Balance -361 -312 Intake, IV 519 598 Intake, Oral 120 240 Output, Urine 1000 1150 Physical Exam: On exam the patient appeared generally well and in no distress. Bandage over right carotid, temporal artery pulses present and symmetric. No peripheral edema Mental status: Alert, attentive, fully oriented, no language errors, recall and general fund of knowledge seem intact. Mild dysarthria Funduscopic deferred Visual mccormack full , Eye movements full without nystagmus, pupils midsize equal round and reactive to light. Facial movement: Good bilateral movement. Mouth slightly asymmetric no obvious facial droop as reported earlier by nursing staff Facial sensation normal bilaterally Hearing intact bilaterally Uvula elevates midline Tongue movements are weak towards the right Shoulder shrug symmetric, Motor power and tone normal in all 4 extremities Sensation intact to primary modes Tendon reflexes normal and symmetric without pathologic signs Coordination no ataxia Gait testing deferred Last 48 Hours of Lab Results: Laboratory Tests 02/21 02/21 1012 0415 Chemistry Sodium (137 - 145 mmol/L) 140 Potassium (3.5 - 5.1 mmol/L) 4.3 Chloride (98 - 107 mmol/L) 104 Carbon Dioxide (22 - 30 mmol/L) 29 Anion Gap (5 - 16) 6 BUN (7 - 17 mg/dL) 13 Creatinine (0.5 - 1.0 mg/dL) 0.7 Estimated GFR (>60 ml/min) > 60 BUN/Creatinine Ratio (7 - 25 %) 18.6 Glucose (65 - 99 mg/dL) 91 Phosphorus (2.5 - 4.5 mg/dL) 4.2 Magnesium (1.6 - 2.3 mg/dL) 1.7 Total Bilirubin (0.2 - 1.3 mg/dL) 0.4 Direct Bilirubin (< 0.4 mg/dL) 0.3 AST (14 - 36 U/L) 20 ALT (9 - 52 U/L) 34 Alkaline Phosphatase (<127 U/L) 114 Troponin I (< 0.11 ng/ml) < 0.01 Total Protein (6.3 - 8.2 g/dL) 6.2 L Albumin (3.5 - 5.0 g/dL) 3.1 L Coagulation PT (9.4 - 12.5 SEC) 12.3 INR (0.90 - 1.19) 1.17 Hematology CBC w Diff NO MAN DIFF REQ WBC (4.8 - 10.8 /CUMM) 6.8 RBC (4.20 - 5.40 /CUMM) 3.70 L Hgb (12.0 - 16.0 G/DL) 10.1 L Hct (37 - 47 %) 31.0 L MCV (81.0 - 99.0 FL) 83.7 MCH (27.0 - 31.0 PG) 27.4 RDW (11.5 - 14.5 %) 14.5 Plt Count (130 - 400 /CUMM) 121 L MPV (7.4 - 10.4 FL) 10.1 Gran % (42.2 - 75.2 %) 70.5 Lymphocytes % (20.5 - 51.1 %) 19.0 L Monocytes % (1.7 - 9.3 %) 9.4 H Eosinophils % (0 - 5 %) 0.6 Basophils % (0.0 - 2.0 %) 0.5 Absolute Granulocytes (1.4 - 6.5 /CUMM) 4.8 Absolute Lymphocytes (1.2 - 3.4 /CUMM) 1.3 Absolute Monocytes (0.10 - 0.60 /CUMM) 0.6 Absolute Eosinophils (0.0 - 0.7 /CUMM) 0 Absolute Basophils (0.0 - 0.2 /CUMM) 0 PUBS MCHC (33.0 - 37.0 G/DL) 32.7 L Imaging/Other Studies: CT CTA Head: Patient motion degrades image quality on this component of the examination therefore the diagnostic accuracy is somewhat limited. There is no acute intracranial hemorrhage or abnormal extra-axial collection. No intracranial mass effect or midline shift. Lateral and third ventricles are normal. No hydrocephalus. There are a few scattered nonspecific foci of hypoattenuation within the periventricular white matter that most likely represent a chronic manifestation of small vessel ischemia. Putnam-white matter differentiation is preserved and there is no evidence of acute territorial infarct. CT angiogram neck: There are recent postoperative changes related to a right carotid endarterectomy including irregularity of the lumen at the right carotid bifurcation. There is no active extravasation of contrast material. There is no high-grade stenosis within the right common carotid artery or cervical segment of the internal carotid artery. There does however appear to be a flap versus a high-grade narrowing at the proximal right external carotid artery for instance best illustrated on axial image 259 of 572 series 8. There is heavily calcified atherosclerotic plaque at the left carotid bifurcation. Due to the presence of motion artifact and beam hardening artifact it is difficult to definitively ascertain the degree of stenosis. There is at least 50% stenosis at the origin of the left internal carotid artery. The left common carotid artery is widely patent. The aortic arch apex is unremarkable and the origins of the major aortic branches are patent. Incidentally there is a four-vessel configuration of the arch with the left vertebral artery arising directly from the aorta. The cervical segments of the vertebral arteries as well as their origins are patent. CT angiogram head: There is calcified plaque involving the cavernous segments of both internal carotid arteries. The petrous, cavernous, and supraclinoid segments of internal carotid arteries are patent. The intradural vertebral artery segments and basilar artery are patent. The anterior, middle, and posterior cerebral artery complexes are unremarkable. There is no evidence of high-grade stenosis or proximal large vessel occlusion. Assessment/Plan Assessment: Transient right hemispheric ischemic attack. Current mild dysarthria, dysphagia and tongue weakness more likely related to local irritation/swelling in the neck due to surgery and should resolve spontaneously. Imaging showed no restenosis, flap or intraluminal thrombus. On phone contact this morning the patient was started back on antiplatelet therapy with aspirin 325 MG and Plavix. Recommendations: Continue aspirin 81 MG daily Continue Plavix 75 MG daily mental antiplatelet therapy for at least 1 and up to 3 months. Monitor blood pressure and for any cardiac dysrhythmias another 24 hours No additional neurodiagnostic testing recommended at this time Please call back if further input is required Consult Acknowledgment - Thank you for your consult request.
[2017-02-21 16:00] VITALS: BP 135/60
[2017-02-21 21:38] VITALS: BP 152/82
[2017-02-22 06:49] VITALS: BP 142/82
--- NOTE | 2017-02-22 08:27 | PN- Vascular Surgery ---
Subjective Subjective: Patient without acute events overnight. CTA of head and neck and CT scan of the head yesterday are negative. Patient feels well, feels as though her speech is normalizing. She has no complaints. Appreciate cardiology and neurology input. She is on aspirin and Plavix Objective Vital Signs and I&Os Vital Signs Date Time Temp Pulse Resp B/P Pulse O2 O2 Flow FiO2 Ox Delivery Rate 02/22 0649 97.8 76 18 142/82 94 Room Air 02/21 2138 97.5 64 18 152/82 98 Room Air 02/21 1600 97 Room Air Room Air 02/21 1600 97.1 60 20 135/60 97 Room Air Room Air 02/21 1040 66 156/55 02/21 1011 68 156/55 Intake & Output 02/22 1600 02/22 0800 02/22 0000 02/21 1600 02/21 0800 02/21 0000 Intake Total 480 200 670 639 838 Output Total 300 1000 1000 1150 Balance 480 -100 -330 -361 -312 Intake, IV 250 519 598 Intake, Oral 480 200 420 120 240 Number 0 Bowel Movements Output, Urine 300 1000 1000 1150 Physical Exam: Well-developed well-nourished person in no acute distress HEENT: Very mild right-sided tongue deviation, extraocular motion intact, no nystagmus. Pupils equally round and reactive to light. Nose is atraumatic. Pharynx normal. No swelling or edema. Neck: Mild right-sided swelling. Dressing is clean dry and intact without any blood staining. Minimal tenderness. no lymphadenopathy, normal range of motion without pain Cardiovascular: Regular rate and rhythms no murmurs, normal JVP Respiratory: Chest nontender. No respiratory distress. Breath sounds clear to auscultation bilaterally Extremity: No edema, no calf tenderness to palpation, normal and equal pulses. Neuro: Alert oriented x3, motor sensory normal, cranial nerves II through XII grossly intact with very mild left-sided drooping of the corner of the mouth and mild right-sided tongue deviation. Speech appears normal Skin: No appreciable rash on exposed skin, skin is warm and dry. Psych: Mood and affect is normal, memory and judgment is normal. Results Last 48 Hours of Labs: Laboratory Tests 02/21 02/21 1012 0415 Chemistry Sodium (137 - 145 mmol/L) 140 Potassium (3.5 - 5.1 mmol/L) 4.3 Chloride (98 - 107 mmol/L) 104 Carbon Dioxide (22 - 30 mmol/L) 29 Anion Gap (5 - 16) 6 BUN (7 - 17 mg/dL) 13 Creatinine (0.5 - 1.0 mg/dL) 0.7 Estimated GFR (>60 ml/min) > 60 BUN/Creatinine Ratio (7 - 25 %) 18.6 Glucose (65 - 99 mg/dL) 91 Phosphorus (2.5 - 4.5 mg/dL) 4.2 Magnesium (1.6 - 2.3 mg/dL) 1.7 Total Bilirubin (0.2 - 1.3 mg/dL) 0.4 Direct Bilirubin (< 0.4 mg/dL) 0.3 AST (14 - 36 U/L) 20 ALT (9 - 52 U/L) 34 Alkaline Phosphatase (<127 U/L) 114 Troponin I (< 0.11 ng/ml) < 0.01 Total Protein (6.3 - 8.2 g/dL) 6.2 L Albumin (3.5 - 5.0 g/dL) 3.1 L Coagulation PT (9.4 - 12.5 SEC) 12.3 INR (0.90 - 1.19) 1.17 Hematology CBC w Diff NO MAN DIFF REQ WBC (4.8 - 10.8 /CUMM) 6.8 RBC (4.20 - 5.40 /CUMM) 3.70 L Hgb (12.0 - 16.0 G/DL) 10.1 L Hct (37 - 47 %) 31.0 L MCV (81.0 - 99.0 FL) 83.7 MCH (27.0 - 31.0 PG) 27.4 RDW (11.5 - 14.5 %) 14.5 Plt Count (130 - 400 /CUMM) 121 L MPV (7.4 - 10.4 FL) 10.1 Gran % (42.2 - 75.2 %) 70.5 Lymphocytes % (20.5 - 51.1 %) 19.0 L Monocytes % (1.7 - 9.3 %) 9.4 H Eosinophils % (0 - 5 %) 0.6 Basophils % (0.0 - 2.0 %) 0.5 Absolute Granulocytes (1.4 - 6.5 /CUMM) 4.8 Absolute Lymphocytes (1.2 - 3.4 /CUMM) 1.3 Absolute Monocytes (0.10 - 0.60 /CUMM) 0.6 Absolute Eosinophils (0.0 - 0.7 /CUMM) 0 Absolute Basophils (0.0 - 0.2 /CUMM) 0 PUBS MCHC (33.0 - 37.0 G/DL) 32.7 L Assessment/Plan Assessment/Plan Postop day 2 status post right-sided carotid endarterectomy with complication of mild neurologic symptoms of dysarthria and left-sided facial droop and right- sided tongue deviation post of which is resolving -Discussed with Dr. BURT, patient is stable for discharge home today, we'll continue aspirin and Plavix. He will follow up with her week from tomorrow in his office which was discussed with patient. She will call with any questions or concerns. Core Measures/Miscellaneous Venous Thromboembolism VTE Risk Factors: Age > 40, Surgery VTE Contraindications: No Contraindications VTE Diagnosis: No VTE Type: NONE VTE Confirmed by (Test): NONE Beta Shayne Is Beta Shayne a Home Med? Yes Antibiotics Is Patient on Antibiotics? No
--- NOTE | 2017-02-22 10:10 | Event Note ---
See Addendum Event Note Event Note: I was called to the patient's bedside by the nurse regarding her discharge vital signs. Her weight in the 30s. Blood pressure 150 systolic. She is asymptomatic. Upon my evaluation she is sitting in a chair, fully dressed and her parents are packed for discharge however on monitor, heart rate in the mid 30s and on exam her heart beat is irregular. She states that she feels "as good as I have felt since I've been here". She has no complaints of feeling lightheaded dizzy chest pain or pressure. I've asked the nurse to hold her blood pressure medication, metoprolol and losartan, stat EKG, CBC, basic electrolytes and magnesium were ordered stat and a call was placed Gary Marie MD. EKG shows bigeminy which is changed from her previous EKG which was normal sinus rhythm. On reevaluation, Heart rate back up into the 70s but then again back down into the 30s. After discussion with Dr. Marie, will place her on a monitored bed, there is a bed available in the ICU, I have asked her to place her on pacer pads, she has a suspended bradycardia and I do not feel as though treatment of her bradycardia is warranted at this time. Gary Marie MD states the patient has a history of PVCs and he will be seeing her within the next few hours. I will discuss with attending
[2017-02-22 10:25] LABS: ABSOLUTE BASOPHIL COUNT 0.2 /CUMM (0.0-0.2); ABSOLUTE EOSINOPHIL COUNT 0.4 /CUMM (0.0-0.7); ABSOLUTE GRANULOCYTE CT 4.4 /CUMM (1.4-6.5); ABSOLUTE LYMPH COUNT 1.6 /CUMM (1.2-3.4); ABSOLUTE MONOCYTE COUNT 0.7 /CUMM (0.10-0.60); BASOPHIL % 2.8 % (0.0-2.0); EOSINOPHIL % 4.9 % (0-5); GRANULOCYTE % 60.5 % (42.2-75.2); HEMATOCRIT 33.5 % (37-47); MEAN CORPUSCULAR HGB 27.7 PG (27.0-31.0); MEAN CORPUSCULAR HGB CONC 33.3 G/DL (33.0-37.0); MEAN CORPUSCULAR VOLUME 83.3 FL (81.0-99.0); MEAN PLATELET VOLUME 8.9 FL (7.4-10.4); PLATELET COUNT 136 /CUMM (130-400); RBC DISTRIBUTION WIDTH 14.6 % (11.5-14.5); RED BLOOD CELL CT 4.03 /CUMM (4.20-5.40); WHITE BLOOD CELL COUNT 7.3 /CUMM (4.8-10.8)
--- NOTE | 2017-02-22 11:26 | PN- Resident CRCU ---
HUNTER VALDEZ,[facility] 02/22/17 1126: Subjective HPI/CRCU Issues: The patient is a 71-year-old female with a history of hypertension, type 2 diabetes, and bioprosthetic aortic valve replacement in 2013 (paroxysmal A. fib at the time of surgery but no arrhythmia subsequently per Dr. Marie). The patient was evaluated by Dr. Marie in the office for amaurosis fugax. Subsequently she had right carotid endarterectomy on 02/20/17. Yesterday morning around 6 AM when family noticed that patient had a slurred speech and left-sided facial droop. Patient was found to have mild dysarthria, dysphagia and tongue weakness, which was more likely related to local irritation and swelling in the neck due to surgery; CT of the head with CTA of the head and neck were unremarkable, patient was started on the aspirin and plavix due to the presumable transient right hemispheric ischemic attack. Later in the day the patient was transferred to general medicine and was planned for discharged today , she was found to be bradycardic in 30s and was sent back to the ICU for close monitoring. 24 Hour Events: Laboratory Tests 02/22 1011 Chemistry Sodium (137 - 145 mmol/L) 137 Potassium (3.5 - 5.1 mmol/L) 4.3 Chloride (98 - 107 mmol/L) 100 Carbon Dioxide (22 - 30 mmol/L) 31 H Anion Gap (5 - 16) 7 BUN (7 - 17 mg/dL) 16 Creatinine (0.5 - 1.0 mg/dL) 0.8 Estimated GFR (>60 ml/min) > 60 BUN/Creatinine Ratio (7 - 25 %) 20.0 Magnesium (1.6 - 2.3 mg/dL) 1.6 Hematology CBC w Diff NO MAN DIFF REQ WBC (4.8 - 10.8 /CUMM) 7.3 RBC (4.20 - 5.40 /CUMM) 4.03 L Hgb (12.0 - 16.0 G/DL) 11.1 L Hct (37 - 47 %) 33.5 L MCV (81.0 - 99.0 FL) 83.3 MCH (27.0 - 31.0 PG) 27.7 RDW (11.5 - 14.5 %) 14.6 H Plt Count (130 - 400 /CUMM) 136 MPV (7.4 - 10.4 FL) 8.9 Gran % (42.2 - 75.2 %) 60.5 Lymphocytes % (20.5 - 51.1 %) 22.2 Monocytes % (1.7 - 9.3 %) 9.6 H Eosinophils % (0 - 5 %) 4.9 Basophils % (0.0 - 2.0 %) 2.8 H Absolute Granulocytes (1.4 - 6.5 /CUMM) 4.4 Absolute Lymphocytes (1.2 - 3.4 /CUMM) 1.6 Absolute Monocytes (0.10 - 0.60 /CUMM) 0.7 H Absolute Eosinophils (0.0 - 0.7 /CUMM) 0.4 Absolute Basophils (0.0 - 0.2 /CUMM) 0.2 PUBS MCHC (33.0 - 37.0 G/DL) 33.3 Vital Signs Date Time Temp Pulse Resp B/P Pulse O2 O2 Flow FiO2 Ox Delivery Rate 02/22 1541 69 182/90 02/22 1400 81 167/114 02/22 1200 96 Room Air Room Air 02/22 0904 42 150/84 02/22 0649 97.8 76 18 142/82 94 Room Air 02/21 2138 97.5 64 18 152/82 98 Room Air Intake & Output 02/22 1600 02/22 0800 02/22 0000 Intake Total 600 480 200 Output Total 300 Balance 600 480 -100 Intake, Oral 600 480 200 Output, Urine 300 Objective Vital Signs & I&O Last 8 Hrs of Vitals and I&O: Intake & Output 02/22 1600 Intake Total 600 Output Total Balance 600 Intake, Oral 600 Exam General Appearance: well developed/nourished, no apparent distress, alert, awake , comfortable Head: atraumatic, normal appearance Ears, Nose, Throat: normal ENT inspection Neck: normal inspection, supple Respiratory: no respiratory distress Cardiovascular: regular rate/rhythm Gastrointestinal: soft Extremities: normal capillary refill Cranial Nerves: normal speech, PERRL Skin: intact Current Medications: Current Medications Sig/Marion Start time Last Medication Dose Route Stop Time Status Admin Acetaminophen 650 MG Q4P PRN 02/21 1815 AC PO Acetaminophen 325 MG Q6P PRN 02/21 1745 DC 02/21 PO 1748 Acetaminophen 1,000 MG Q6H 02/21 0945 DC 02/21 N/A 1 UNIT IV 02/22 0359 1014 Aspirin 325 MG DAILY 02/20 1023 AC 02/22 PO 0900 Atorvastatin Calcium 40 MG 1700 02/20 1700 AC 02/22 PO 1541 Clopidogrel Bisulfate 75 MG DAILY 02/21 1000 AC 02/22 PO 0900 Dextrose/Sodium 1,000 ML Q13H 02/21 2326 DC 02/21 Chloride IV 1023 Diazepam 2 MG ONCE ONE 02/22 1645 DC PO 02/22 1646 Docusate Sodium 100 MG BID 02/21 2200 AC 02/22 PO 0900 Escitalopram Oxalate 20 MG DAILY 02/21 1000 AC 02/22 PO 0900 Gabapentin 600 MG AT BEDTIME 02/20 2200 AC 02/21 PO 2102 Heparin Sodium 5,000 UNIT Q8 02/20 1400 AC 02/22 (Porcine) SC 1400 Hydromorphone HCl 2 MG Q4P PRN 02/20 1030 AC 02/22 PO 0510 Losartan Potassium 50 MG DAILY 02/21 1000 AC 02/22 PO 1541 Magnesium Oxide 400 MG ONE ONE 02/22 1345 DC 02/22 PO 02/22 1346 1400 Metoprolol Succinate 50 MG DAILY 02/21 1000 AC 02/22 PO 1400 Morphine Sulfate 2 MG Q4P PRN 02/20 1030 AC IV Nitroglycerin 1 GM ONCE PRN 02/20 2100 AC TOP Ondansetron HCl 4 MG Q6P PRN 02/20 1030 AC IV Impression/Plan Impression/Problem List Impression: The patient is a 71-year-old female with a history of hypertension, type 2 diabetes, and bioprosthetic aortic valve replacement in 2013 (paroxysmal A. fib at the time of surgery but no arrhythmia subsequently per Dr. Marie). The patient was evaluated by Dr. Marie in the office for amaurosis fugax. Subsequently she had right carotid endarterectomy on 02/20/17. Yesterday morning around 6 AM when family noticed that patient had a slurred speech and left-sided facial droop. Patient was found to have mild dysarthria, dysphagia and tongue weakness, which was more likely related to local irritation and swelling in the neck due to surgery; CT of the head with CTA of the head and neck were unremarkable, patient was started on the aspirin and plavix due to the presumable transient right hemispheric ischemic attack. Later in the day the patient was transferred to the general medicine floor and was planned for discharged today, she was found to be bradycardic in 30s and was sent back to the ICU for close monitoring. Problem list and plan: Bradycardia Could be related to her recent carotid endarterectomy. Surgical manipulation of the carotid sinus during carotid dissection may result in sympathetic stimulation and resultant hypertension and tachycardia or may increase parasympathetic outflow with resultant bradycardia and hypotension ( PMID:[id number]) * cardiac monitoring * beside defibrillator with pads attached to the patient * cardiology, Dr. Marie aware, will follow recommendations Episode of possible ischemic attack yesterday the patient was found to be dysarthric transiently - improved * continue aspirin 81 daily * continue plavix 75 mg daily for at least 1-3 months * continue statin 40 mg daily History of HTN and DM * losartan 50 mg daily * accuckecks TID AC * insulin low dose NSS Diet cc3 pain tylenol for mild pain, dilaudid and morphine for moderate to severe pain DVT px Heparin SC FULL CODE Problem List: 1. Carotid stenosis 2. Bronchitis Pain Ratin Tomorrow's Labs & Rationales: CBC (anemia), ICU bundle (monitor electrolyes) Plan DVT/Prophylaxis: pharmacological Nicolasa RUSSELL MD 02/22/17 1138: Attending MD Review Statement Attending Sign Off Attending Cosign Statement: I have: examined this patient, reviewed [facility] EMR data, discussd w/resident/PA/ CRUTCHER HELPER, agreed w/resident/PA/CRUTCHER HELPER, amended to note. Reason for Cont Hospitalizatn: Bradycardia Adverse Outcomes if Pt Leaves: Cardiac event Other Findings: I have personally seen and examined the patient and agree with the resident's assessment and plan as detailed above. The patient was on the general medical floor and awaiting discharge instructions. She was evaluated by the nurse prior to discharge and vital signs were taken. Her heart rate was noted to be in the 30s with a blood pressure of 150 systolic. The patient was asymptomatic. She was placed back on the court monitor and her heart rate was observed to be in the 30s. The patient had no chest pain, lightheadedness, dizziness, shortness of breath or any other associated issues. The patient's medication including metoprolol and losartan were held. An EKG showed bigeminy which was changed from her previous EKG. The patient was transferred back to ICU and placed on pacer pads in the event she has symptomatic bradycardia. Dr. Marie was made aware of the change in patient's status and will be continuing to follow her. We will continue to monitor the patient in the ICU for any significant changes.
[2017-02-22] MEDS ORDERED: MAGNESIUM OXID400 M1 PO (14:38)
[2017-02-22 16:00] VITALS: BP 182/90
--- NOTE | 2017-02-22 16:54 | PN- Neurology ---
Subjective Subjective: Neurologic findings cleared. Just prior to discharge developed high blood pressure and bigeminy, back on monitor Review of Systems: No headache, no difficulty swallowing, no lateralized weakness or numbness Objective Vital Signs and I&Os Vital Signs Date Time Temp Pulse Resp B/P Pulse O2 O2 Flow FiO2 Ox Delivery Rate 02/22 1541 69 182/90 02/22 1400 81 167/114 02/22 1200 96 Room Air Room Air 02/22 0904 42 150/84 02/22 0649 97.8 76 18 142/82 94 Room Air 02/21 2138 97.5 64 18 152/82 98 Room Air Intake & Output 02/22 1600 02/22 0800 02/22 0000 02/21 1600 02/21 0800 02/21 0000 Intake Total 600 480 200 670 639 838 Output Total 300 1000 1000 1150 Balance 600 480 -100 -330 -361 -312 Intake, IV 250 519 598 Intake, Oral 600 480 200 420 120 240 Number 0 Bowel Movements Output, Urine 300 1000 1000 1150 Physical Exam: Alert and attentive speech and language normal visual mccormack full eye movements and pupils normal. Slight right lower facial weakness probably due to the right endarterectomy. Handgrips strong no drift Current Medications: Current Medications Sig/Marion Start time Last Medication Dose Route Stop Time Status Admin Acetaminophen 650 MG Q4P PRN 02/21 1815 AC PO Acetaminophen 325 MG Q6P PRN 02/21 1745 DC 02/21 PO 1748 Acetaminophen 1,000 MG Q6H 02/21 0945 DC 02/21 N/A 1 UNIT IV 02/22 0359 1014 Aspirin 325 MG DAILY 02/20 1023 AC 02/22 PO 0900 Atorvastatin Calcium 40 MG 1700 02/20 1700 AC 02/22 PO 1541 Clopidogrel Bisulfate 75 MG DAILY 02/21 1000 AC 02/22 PO 0900 Dextrose/Sodium 1,000 ML Q13H 02/21 2326 DC 02/21 Chloride IV 1023 Diazepam 2 MG ONCE ONE 02/22 1645 DC PO 02/22 1646 Docusate Sodium 100 MG BID 02/21 2200 AC 02/22 PO 0900 Escitalopram Oxalate 20 MG DAILY 02/21 1000 AC 02/22 PO 0900 Gabapentin 600 MG AT BEDTIME 02/20 2200 AC 02/21 PO 2102 Heparin Sodium 5,000 UNIT Q8 02/20 1400 AC 02/22 (Porcine) SC 1400 Hydromorphone HCl 2 MG Q4P PRN 02/20 1030 AC 02/22 PO 0510 Losartan Potassium 50 MG DAILY 02/21 1000 AC 02/22 PO 1541 Magnesium Oxide 400 MG ONE ONE 02/22 1345 DC 02/22 PO 02/22 1346 1400 Metoprolol Succinate 50 MG DAILY 02/21 1000 AC 02/22 PO 1400 Morphine Sulfate 2 MG Q4P PRN 02/20 1030 AC IV Nitroglycerin 1 GM ONCE PRN 02/20 2100 AC TOP Ondansetron HCl 4 MG Q6P PRN 02/20 1030 AC IV Results Last 24 Hours of Lab Results: Laboratory Tests 02/22 1011 Chemistry Sodium (137 - 145 mmol/L) 137 Potassium (3.5 - 5.1 mmol/L) 4.3 Chloride (98 - 107 mmol/L) 100 Carbon Dioxide (22 - 30 mmol/L) 31 H Anion Gap (5 - 16) 7 BUN (7 - 17 mg/dL) 16 Creatinine (0.5 - 1.0 mg/dL) 0.8 Estimated GFR (>60 ml/min) > 60 BUN/Creatinine Ratio (7 - 25 %) 20.0 Magnesium (1.6 - 2.3 mg/dL) 1.6 Hematology CBC w Diff NO MAN DIFF REQ WBC (4.8 - 10.8 /CUMM) 7.3 RBC (4.20 - 5.40 /CUMM) 4.03 L Hgb (12.0 - 16.0 G/DL) 11.1 L Hct (37 - 47 %) 33.5 L MCV (81.0 - 99.0 FL) 83.3 MCH (27.0 - 31.0 PG) 27.7 RDW (11.5 - 14.5 %) 14.6 H Plt Count (130 - 400 /CUMM) 136 MPV (7.4 - 10.4 FL) 8.9 Gran % (42.2 - 75.2 %) 60.5 Lymphocytes % (20.5 - 51.1 %) 22.2 Monocytes % (1.7 - 9.3 %) 9.6 H Eosinophils % (0 - 5 %) 4.9 Basophils % (0.0 - 2.0 %) 2.8 H Absolute Granulocytes (1.4 - 6.5 /CUMM) 4.4 Absolute Lymphocytes (1.2 - 3.4 /CUMM) 1.6 Absolute Monocytes (0.10 - 0.60 /CUMM) 0.7 H Absolute Eosinophils (0.0 - 0.7 /CUMM) 0.4 Absolute Basophils (0.0 - 0.2 /CUMM) 0.2 PUBS MCHC (33.0 - 37.0 G/DL) 33.3 Recent Imaging Studies: Transient Assessment/Plan Assessment: Transient cerebral ischemia, 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 Already on appropriate treatment Please call back if further neurologic input required
--- NOTE | 2017-02-22 18:51 | PN- Cardiology ---
Subjective Subjective: Transferred to ICU earlier today with reported bradycardia, likely related to ventricular ectopy. No documented slow heart rates. Also noted to be hypertensive, likely related to morning meds being held. Otherwise stable with no symptoms. Objective Vital Signs and I&Os Vital Signs Date Time Temp Pulse Resp B/P Pulse O2 O2 Flow FiO2 Ox Delivery Rate 02/22 1600 97.6 68 28 182/90 96 Room Air Room Air 02/22 1541 69 182/90 02/22 1400 81 167/114 02/22 1200 96 Room Air Room Air 02/22 0904 42 150/84 02/22 0649 97.8 76 18 142/82 94 Room Air 02/21 2138 97.5 64 18 152/82 98 Room Air Intake & Output 02/22 1600 02/22 0800 02/22 0000 02/21 1600 02/21 0800 02/21 0000 Intake Total 600 480 200 670 639 838 Output Total 300 1000 1000 1150 Balance 600 480 -100 -330 -361 -312 Intake, IV 250 519 598 Intake, Oral 600 480 200 420 120 240 Number 0 Bowel Movements Output, Urine 300 1000 1000 1150 Current Medications: Current Medications Sig/Marion Start time Last Medication Dose Route Stop Time Status Admin Acetaminophen 650 MG Q4P PRN 02/21 1815 AC PO Aspirin 325 MG DAILY 02/20 1023 AC 02/22 PO 0900 Atorvastatin Calcium 40 MG 1700 02/20 1700 AC 02/22 PO 1541 Clopidogrel Bisulfate 75 MG DAILY 02/21 1000 AC 02/22 PO 0900 Dextrose/Sodium 1,000 ML Q13H 02/21 2326 DC 02/21 Chloride IV 1023 Diazepam 2 MG ONCE ONE 02/22 1645 DC 02/22 PO 02/22 1646 1734 Docusate Sodium 100 MG BID 02/21 2200 AC 02/22 PO 0900 Escitalopram Oxalate 20 MG DAILY 02/21 1000 AC 02/22 PO 0900 Gabapentin 600 MG AT BEDTIME 02/20 2200 AC 02/21 PO 2102 Heparin Sodium 5,000 UNIT Q8 02/20 1400 AC 02/22 (Porcine) SC 1400 Hydralazine HCl 10 MG ONCE ONE 02/22 1730 DC IV 02/22 1731 Hydromorphone HCl 2 MG Q4P PRN 02/20 1030 AC 02/22 PO 0510 Insulin Aspart 0 TIDAC 02/23 0800 AC SC Losartan Potassium 50 MG DAILY 02/21 1000 AC 02/22 PO 1541 Magnesium Oxide 400 MG ONE ONE 02/22 1345 DC 02/22 PO 02/22 1346 1400 Metoprolol Succinate 50 MG DAILY 02/21 1000 AC 02/22 PO 1400 Morphine Sulfate 2 MG Q4P PRN 02/20 1030 AC IV Nitroglycerin 1 GM ONCE PRN 02/20 2100 AC TOP Ondansetron HCl 4 MG Q6P PRN 02/20 1030 AC IV Results Last 48 Hrs of Labs/Mics: Laboratory Tests 02/22/17 1011: Anion Gap 7, Estimated GFR > 60, BUN/Creatinine Ratio 20.0, Magnesium 1.6, CBC w Diff NO MAN DIFF REQ, RBC 4.03 L, MCV 83.3, MCH 27.7, RDW 14.6 H, MPV 8.9, Gran % 60.5, Lymphocytes % 22.2, Monocytes % 9.6 H, Eosinophils % 4.9, Basophils % 2.8 H, Absolute Granulocytes 4.4, Absolute Lymphocytes 1.6, Absolute Monocytes 0.7 H, Absolute Eosinophils 0.4, Absolute Basophils 0.2, PUBS MCHC 33.3 02/21/17 1012: PT 12.3, INR 1.17 02/21/17 0415: Anion Gap 6, Estimated GFR > 60, BUN/Creatinine Ratio 18.6, Glucose 91, Phosphorus 4.2, Magnesium 1.7, Total Bilirubin 0.4, Direct Bilirubin 0.3, AST 20 , ALT 34, Alkaline Phosphatase 114, Troponin I < 0.01, Total Protein 6.2 L, Albumin 3.1 L, CBC w Diff NO MAN DIFF REQ, RBC 3.70 L, MCV 83.7, MCH 27.4, RDW 14.5, MPV 10.1, Gran % 70.5, Lymphocytes % 19.0 L, Monocytes % 9.4 H, Eosinophils % 0.6, Basophils % 0.5, Absolute Granulocytes 4.8, Absolute Lymphocytes 1.3, Absolute Monocytes 0.6, Absolute Eosinophils 0, Absolute Basophils 0, PUBS MCHC 32.7 L Assessment/Plan Assessment/Plan Assessment: 1. Perioperative Neurologic event 2. Day #2 post right CEA 3. History of bioprosthetic AVR 4. HTN 5. HLD 6. Mild normocytic anemia 7. Mild thrombocytopenia 8. History of PAF at time of AVR in 2013 9. Ventricular ectopy Recommendations: - As discussed with surgery, continue to monitor in ICU overnight. - MOnitor BP - If necessary, IV hydralazine for BP control - IN AM, give usual dose of metoprolol and losartan - Probable discharge tomorrow. Continue telemetry? Yes
[2017-02-23] VITALS: BP 124/62
[2017-02-23 05:25] LABS: ABSOLUTE BASOPHIL COUNT 0.1 /CUMM (0.0-0.2); ABSOLUTE EOSINOPHIL COUNT 0.4 /CUMM (0.0-0.7); ABSOLUTE GRANULOCYTE CT 3.8 /CUMM (1.4-6.5); ABSOLUTE LYMPH COUNT 1.9 /CUMM (1.2-3.4); ABSOLUTE MONOCYTE COUNT 0.6 /CUMM (0.10-0.60); BASOPHIL % 0.7 % (0.0-2.0); GRANULOCYTE % 55.8 % (42.2-75.2); HEMATOCRIT 35.5 % (37-47); MEAN CORPUSCULAR HGB 27.2 PG (27.0-31.0); MEAN CORPUSCULAR HGB CONC 32.6 G/DL (33.0-37.0); MEAN CORPUSCULAR VOLUME 83.4 FL (81.0-99.0); MEAN PLATELET VOLUME 9.5 FL (7.4-10.4); RBC DISTRIBUTION WIDTH 14.6 % (11.5-14.5); RED BLOOD CELL CT 4.26 /CUMM (4.20-5.40); WHITE BLOOD CELL COUNT 6.9 /CUMM (4.8-10.8)
--- NOTE | 2017-02-23 05:39 | PN- Resident CRCU ---
See Addendum Subjective HPI/CRCU Issues: 1- episode of bradycardia detected yesterday, s/p carotid endarterectomy 2- Elevated BP 3- required O2 per NC overnight 24 Hour Events: Laboratory Tests 02/23 02/22 0450 1011 Chemistry Sodium (137 - 145 mmol/L) 138 137 Potassium (3.5 - 5.1 mmol/L) 4.4 4.3 Chloride (98 - 107 mmol/L) 99 100 Carbon Dioxide (22 - 30 mmol/L) 30 31 H Anion Gap (5 - 16) 9 7 BUN (7 - 17 mg/dL) 19 H 16 Creatinine (0.5 - 1.0 mg/dL) 0.8 0.8 Estimated GFR (>60 ml/min) > 60 > 60 BUN/Creatinine Ratio (7 - 25 %) 20.0 Glucose (65 - 99 mg/dL) 98 Calcium (8.4 - 10.2 mg/dL) 9.1 Phosphorus (2.5 - 4.5 mg/dL) 4.7 H Magnesium (1.6 - 2.3 mg/dL) 1.7 1.6 Total Bilirubin (0.2 - 1.3 mg/dL) 0.5 AST (14 - 36 U/L) 20 ALT (9 - 52 U/L) 27 Albumin (3.5 - 5.0 g/dL) 3.6 Hematology CBC w Diff NO MAN DIFF REQ NO MAN DIFF REQ WBC (4.8 - 10.8 /CUMM) 6.9 7.3 RBC (4.20 - 5.40 /CUMM) 4.26 4.03 L Hgb (12.0 - 16.0 G/DL) 11.6 L 11.1 L Hct (37 - 47 %) 35.5 L 33.5 L MCV (81.0 - 99.0 FL) 83.4 83.3 MCH (27.0 - 31.0 PG) 27.2 27.7 RDW (11.5 - 14.5 %) 14.6 H 14.6 H Plt Count (130 - 400 /CUMM) 155 136 MPV (7.4 - 10.4 FL) 9.5 8.9 Gran % (42.2 - 75.2 %) 55.8 60.5 Lymphocytes % (20.5 - 51.1 %) 28.0 22.2 Monocytes % (1.7 - 9.3 %) 9.1 9.6 H Eosinophils % (0 - 5 %) 6.4 H 4.9 Basophils % (0.0 - 2.0 %) 0.7 2.8 H Absolute Granulocytes (1.4 - 6.5 /CUMM) 3.8 4.4 Absolute Lymphocytes (1.2 - 3.4 /CUMM) 1.9 1.6 Absolute Monocytes (0.10 - 0.60 /CUMM) 0.6 0.7 H Absolute Eosinophils (0.0 - 0.7 /CUMM) 0.4 0.4 Absolute Basophils (0.0 - 0.2 /CUMM) 0.1 0.2 PUBS MCHC (33.0 - 37.0 G/DL) 32.6 L 33.3 Vital Signs Date Time Temp Pulse Resp B/P Pulse O2 O2 Flow FiO2 Ox Delivery Rate 02/23 0509 70 223/92 02/23 0000 94 Room Air 02/23 0000 99.2 74 24 124/62 94 Room Air 02/22 2303 94 224/122 02/22 2000 95 Room Air 02/22 1600 96 Room Air Room Air 02/22 1600 97.6 68 28 182/90 96 Room Air Room Air 02/22 1541 69 182/90 02/22 1400 81 167/114 02/22 1200 96 Room Air Room Air 02/22 0904 42 150/84 Intake & Output 02/23 0800 02/23 0000 02/22 1600 Intake Total 400 600 Output Total 350 Balance 50 600 Intake, Oral 400 600 Output, Urine 350 Objective Vital Signs & I&O Last 8 Hrs of Vitals and I&O: max temp 99.2 hr 64-74 sr systolic bp 236-116 diastolic bp 53-96 Intake 400 cc Output 1150 cc BS 97-171 Exam General Appearance: well developed/nourished, no apparent distress Head: atraumatic, normal appearance Ears, Nose, Throat: normal ENT inspection Neck: normal inspection, supple, full range of motion Respiratory: normal breath sounds, chest non-tender, no respiratory distress Cardiovascular: regular rate/rhythm Gastrointestinal: soft, non-tender Extremities: normal capillary refill, no edema Cranial Nerves: normal speech Skin: intact, minor bleeding and echymoses at the site of the Heprain SC inejection on the right lower abdomen Back: normal range of motion Current Medications: Current Medications Sig/Marion Start time Last Medication Dose Route Stop Time Status Admin Acetaminophen 650 MG Q4P PRN 02/21 1815 DCD 02/22 PO 2306 Amlodipine Besylate 2.5 MG ONCE ONE 02/23 1230 DC 02/23 PO 02/23 1231 1240 Aspirin 81 MG DAILY 02/23 1015 DCD 02/23 PO 1300 Aspirin 325 MG DAILY 02/20 1023 DC 02/22 PO 0900 Atorvastatin Calcium 40 MG 1700 02/20 1700 DCD 02/22 PO 1541 Clopidogrel Bisulfate 75 MG DAILY 02/21 1000 DCD 02/23 PO 1013 Docusate Sodium 100 MG BID 02/21 2200 DCD 02/23 PO 1013 Escitalopram Oxalate 20 MG DAILY 02/21 1000 DCD 02/23 PO 1013 Gabapentin 600 MG AT BEDTIME 02/20 2200 DCD 02/22 PO 2129 Heparin Sodium 5,000 UNIT Q8 02/20 1400 DCD 02/23 (Porcine) SC 0515 Hydromorphone HCl 2 MG Q4P PRN 02/20 1030 DCD 02/23 PO 0509 Insulin Aspart 0 TIDAC 02/23 0800 DCD SC Losartan Potassium 50 MG DAILY 02/21 1000 DCD 02/23 PO 0509 Metoprolol Succinate 50 MG DAILY 02/21 1000 DCD 02/23 PO 1013 Morphine Sulfate 2 MG Q4P PRN 02/20 1030 DCD IV Nitroglycerin 1 GM ONCE PRN 02/20 2100 DCD TOP Ondansetron HCl 4 MG Q6P PRN 02/20 1030 DCD IV Impression/Plan Impression/Problem List Impression: The patient is a 71-year-old female with a history of hypertension, type 2 diabetes, and bioprosthetic aortic valve replacement in 2013 (paroxysmal A. fib at the time of surgery but no arrhythmia subsequently per Dr. Marie). The patient was evaluated by Dr. Marie in the office for amaurosis fugax. Subsequently she had right carotid endarterectomy on 02/20/17. Yesterday morning around 6 AM when family noticed that patient had a slurred speech and left-sided facial droop. Patient was found to have mild dysarthria, dysphagia and tongue weakness, which was more likely related to local irritation and swelling in the neck due to surgery; CT of the head with CTA of the head and neck were unremarkable, patient was started on the aspirin and plavix due to the presumable transient right hemispheric ischemic attack. Later in the day the patient was transferred to the general medicine floor and was planned for discharged today, she was found to be bradycardic in 30s and was sent back to the ICU for close monitoring. Problem list and plan: Hypoxia overnight SO2 down to 87%, she was put on O2 1L NC, no coughing or SOB, lung exam unremarkable * CXR * Patient can be discharged afterwards Bradycardia - resolved Was noticed in the physcial exam yesterday on the floor Could be related to her recent carotid endarterectomy Surgical manipulation of the carotid sinus during carotid dissection may result in sympathetic stimulation and resultant hypertension and tachycardia or may increase parasympathetic outflow with resultant bradycardia and hypotension ( PMID:[id number]) * cardiac monitoring - no episode of bradycardia noted on the monitor so far Episode of possible ischemic attack on 02/21/17 the patient was found to be dysarthric transiently - resolved * continue aspirin 81 mg daily * continue plavix 75 mg daily for at least 1-3 months * continue statin 40 mg daily History of HTN and DM BP was elevated during the might this morning - improved with a 2.5 mg dose of amlodipine * added amlodipine 2.5 mg daily to her medications * losartan 50 mg daily * accuckecks TID AC * insulin low dose NSS Diet cc3 pain tylenol for mild pain, dilaudid and morphine for moderate to severe pain DVT px Heparin SC FULL CODE Problem List: 1. Carotid stenosis 2. Hypertension Pain Ratin Tomorrow's Labs & Rationales: none Plan DVT/Prophylaxis: pharmacological
--- NOTE | 2017-02-23 05:40 | PN- Vascular Surgery ---
See Addendum Subjective Subjective: Patient reporting a headache overnight 12/22, stating that it was "annoying, but no real pain". She states that it was primarily in the back of her head and assicoated it with her pillow, but this am reports the discomfort in the front as well. She denies blurred vision, nausea, vomitting. She states that previously felt numbness in her right jaw is improving but she notes she still has some residual difficulty chewing food on that side. She denies chest pain, shortness of breath or difficulty breathing. She did desaturate overnight to 70 's, appeared to have sleep apnea based on nursing observation, was given 1L by nasal cannula. Objective Vital Signs and I&Os Vital Signs Date Time Temp Pulse Resp B/P Pulse O2 O2 Flow FiO2 Ox Delivery Rate 02/23 0509 70 223/92 02/23 0000 94 Room Air 02/23 0000 99.2 74 24 124/62 94 Room Air 02/22 2303 94 224/122 02/22 2000 95 Room Air 02/22 1600 96 Room Air Room Air 02/22 1600 97.6 68 28 182/90 96 Room Air Room Air 02/22 1541 69 182/90 02/22 1400 81 167/114 02/22 1200 96 Room Air Room Air 02/22 0904 42 150/84 02/22 0649 97.8 76 18 142/82 94 Room Air Intake & Output 02/23 0800 02/23 0000 02/22 1600 02/22 0800 02/22 0000 02/21 1600 Intake Total 400 600 480 200 670 Output Total 084 458 5720 Balance 50 600 480 -100 -330 Intake, IV 250 Intake, Oral 400 600 480 200 420 Number 0 Bowel Movements Output, Urine 891 105 9353 Physical Exam: General: Alert and oriented x3, no distress Cardiac: RRR, s1s2 Pulm: CTA bilatearlly Facial symmetry noted, no obvious facial droop. Ocular movement normal, no nystagmus, pupils equal, round and reactive. Reporting some transient loss of sensation around right mandible, bilateral sensation intact this am. Tongue weakness with slight right side deviation noted on exam this am. Bilateral upper extremity strength equal. Extremities: Moves all extremities, distal sensation intact. Bilateral calves soft and non-tender Surgical site: Right neck/carotid: dressing dry and intact, some residual swelling noted. Assessment/Plan Assessment/Plan This is a 71 year old female, POD 3 s/p R CEA. PMH significant for dm, hld, and htn. Post operative course has been complicated by labile bp with hypertensive episodes to 220's systolic as well as reported bradycardia to 30's and 40's. Facial droop noted POD 1 as well as difficulty with speech and stroke alert was activated. No CVA confirmed. Patient has had subsequent evaluations by neurology and cardiology. Recommendations from neuro have been to continue plavix and aspirin. Cardiology recommending hydralazine IV if bp elevated and will continue to evaluate prior to discharge. -Hydralazine 10 given IV overnight for bp systolic 220, systolic down to 120. However, systolic bp spiked again to 220 after OOB to commode, Cozaar given early. Dr. Marie to see this am. -New headache. Consider reconsult neuro, Dr. Hall, prior to discharge -Continue current pain regimen -Will d/w Dr. Garcia, Dr. Marie, and Dr. Hall Core Measures/Miscellaneous Venous Thromboembolism VTE Risk Factors: Age > 40, Surgery VTE Contraindications: No Contraindications VTE Diagnosis: No VTE Type: NONE VTE Confirmed by (Test): NONE Beta Shayne Is Beta Shayne a Home Med? Yes Antibiotics Is Patient on Antibiotics? No
[2017-02-23 06:02] LABS: PLATELET COUNT 155 /CUMM (130-400)
[2017-02-23 06:03] LABS: EOSINOPHIL % 6.4 % (0-5)
[2017-02-23 08:00] VITALS: BP 158/80
--- NOTE | 2017-02-23 10:09 | PN- CRCU ---
Subjective HPI/Critical Care Issues: The patient is awake and alert. She was noted to be hypertensive yesterday. She also was noted to have a difference in blood pressure between her right and left arm which will be retaken. The patient offers no complaints other than some painful swallowing following her carotid endarterectomy. She mildly desaturated last night and was placed on 1 L nasal cannula. Her oxygen saturations are normal on room air this morning. Objective Current Medications: Current Medications Sig/Marion Start time Last Medication Dose Route Stop Time Status Admin Acetaminophen 650 MG .STK-MED ONE 02/22 2300 DC PO 02/22 2301 Acetaminophen 650 MG Q4P PRN 02/21 1815 AC 02/22 PO 2306 Aspirin 325 MG DAILY 02/20 1023 AC 02/22 PO 0900 Atorvastatin Calcium 40 MG 1700 02/20 1700 AC 02/22 PO 1541 Clopidogrel Bisulfate 75 MG DAILY 02/21 1000 AC 02/22 PO 0900 Diazepam 2 MG ONCE ONE 02/22 1645 DC 02/22 PO 02/22 1646 1734 Docusate Sodium 100 MG BID 02/21 2200 AC 02/22 PO 2128 Escitalopram Oxalate 20 MG DAILY 02/21 1000 AC 02/22 PO 0900 Gabapentin 600 MG AT BEDTIME 02/20 2200 AC 02/22 PO 2129 Heparin Sodium 5,000 UNIT Q8 02/20 1400 AC 02/23 (Porcine) SC 0515 Hydralazine HCl 10 MG ONCE ONE 02/22 2300 DC 02/22 IV 02/22 2301 2303 Hydralazine HCl 10 MG ONCE ONE 02/22 1730 DC IV 02/22 1731 Hydromorphone HCl 2 MG Q4P PRN 02/20 1030 AC 02/23 PO 0509 Insulin Aspart 0 TIDAC 02/23 0800 AC SC Losartan Potassium 50 MG DAILY 02/21 1000 AC 02/23 PO 0509 Magnesium Oxide 400 MG ONE ONE 02/22 1345 DC 02/22 PO 02/22 1346 1400 Metoprolol Succinate 50 MG DAILY 02/21 1000 AC 02/22 PO 1400 Morphine Sulfate 2 MG Q4P PRN 02/20 1030 AC IV Nitroglycerin 1 GM ONCE PRN 02/20 2100 AC TOP Ondansetron HCl 4 MG Q6P PRN 02/20 1030 AC IV Vital Signs & I&O Last 24 Hrs of Vitals and I&O: Vital Signs Date Time Temp Pulse Resp B/P Pulse O2 O2 Flow FiO2 Ox Delivery Rate 02/23 0509 70 223/92 02/23 0400 95 Nasal 1.0L Cannula 02/23 0000 94 Room Air 02/23 0000 99.2 74 24 124/62 94 Room Air 02/22 2303 94 224/122 02/22 2000 95 Room Air 02/22 1600 96 Room Air Room Air 02/22 1600 97.6 68 28 182/90 96 Room Air Room Air 02/22 1541 69 182/90 02/22 1400 81 167/114 02/22 1200 96 Room Air Room Air Intake & Output 02/23 1600 02/23 0800 02/23 0000 Intake Total 400 400 Output Total 1150 350 Balance -750 50 Intake, Oral 400 400 Output, Urine 1150 350 Exam General Appearance: well developed/nourished, no apparent distress, alert, awake , comfortable Head: atraumatic, normal appearance Ears, Nose, Throat: normal ENT inspection Neck: normal inspection, supple Respiratory: no respiratory distress Cardiovascular: regular rate/rhythm Gastrointestinal: soft Extremities: normal capillary refill Cranial Nerves: normal speech, PERRL Skin: intact Impression/Plan Impression/Plan Impression/Plan: 1. Bradycardia, no evidence of slow heart rate on telemetry monitoring over the past 24 hours. 2. Abnormal blood pressure difference between right and left arm, rule out dissection. 3. Recent right carotid endarterectomy, stable. 4. Recent left facial droop and tongue deviation, improved. Recommendations: * We will recheck the patient's blood pressure in her right and left arm. If this remains abnormal, we will send patient for a CT angiogram to rule out dissection. * Will monitor the patient's blood pressure and heart rate. * Continue to monitor her saturations on room air. * Continue DVT prophylaxis. * If the patient does well today, will discharge to home. Discussed with cardiology and vascular surgery.
--- NOTE | 2017-02-23 10:57 | RADIOLOGY REPORT ---
EXAMINATION: XR PORTABLE CHEST CLINICAL INFORMATION: Decreased oxygen saturation. Assess for pneumonia or pleural effusion. COMPARISON: There are no recent prior studies for comparison. Comparison was made with a chest x-ray 11/07/2015. TECHNIQUE: Portable AP view of the chest was obtained. FINDINGS: The lung mccormack are well expanded and appear clear bilaterally. The cardiac silhouette is at the upper limits of normal in size. There are no pleural effusions or pneumothorax. The central pulmonary vasculature is normal. The hilar regions appear normal. There are sequelae of median sternotomy, unchanged. There are skin gopi in the right lower neck. The study redemonstrates postoperative changes at the right shoulder joint. There are multiple monitor leads overlying the chest. IMPRESSION: 1. There are no acute cardiopulmonary findings.
--- NOTE | 2017-02-23 12:12 | PN- Vascular Surgery ---
Surgical Brief Attending Note Brief Attending Note: VASCULAR ATTENDING NOTE: Pt. seen and examined now POD #3 s/p R. CEA. She denies aphasia, weakness, or visual changes. Transferred back to ICU for bradycardia. BP well controlled. PE: AF/VSS Neuro: No major focal weakeness/defecits, speech same as noted in PACU IMAGING: CT Head--negative--CTA Neck - No intimal disruption/stenosis of R. ICA A/P Pt. being considered for CT chest due to abnormal BP - however in the setting of no chest pain yield is likely to be low Cont. antiplatelet Rx. Plan to discharge if clear from ICU/cardiologu
[2017-02-23 12:40] VITALS: BP 199/100
--- NOTE | 2017-02-23 12:45 | PN- Cardiology ---
Subjective Subjective: The patient is stable today. Her blood pressure remains labile but within a reasonable range. She received her morning medications today. Subsequent, the nursing staff noted that the patient might have a 40 mm blood pressure deficit between her upper extremities. This was subsequently rechecked by me. Using the small blood pressure cuff, the patient's blood pressure is 208/92 in her right arm and 202/88 in her left arm. Using an appropriate sized large manual cuff, the blood pressure is 184/84 in her right arm and 178/82 and her left arm. Objective Vital Signs and I&Os Vital Signs Date Time Temp Pulse Resp B/P Pulse O2 O2 Flow FiO2 Ox Delivery Rate 02/23 1240 72 199/100 02/23 1013 71 158/806 02/23 0509 70 223/92 02/23 0400 95 Nasal 1.0L Cannula 02/23 0000 94 Room Air 02/23 0000 99.2 74 24 124/62 94 Room Air 02/22 2303 94 224/122 02/22 2000 95 Room Air 02/22 1600 96 Room Air Room Air 02/22 1600 97.6 68 28 182/90 96 Room Air Room Air 02/22 1541 69 182/90 02/22 1400 81 167/114 Intake & Output 02/23 1600 02/23 0800 02/23 0000 02/22 1600 02/22 0800 02/22 0000 Intake Total 400 400 600 480 200 Output Total 1150 350 300 Balance -750 50 600 480 -100 Intake, Oral 400 400 600 480 200 Output, Urine 1150 350 300 Current Medications: Current Medications Sig/Marion Start time Last Medication Dose Route Stop Time Status Admin Acetaminophen 650 MG .STK-MED ONE 02/22 2300 DC PO 02/22 2301 Acetaminophen 650 MG Q4P PRN 02/21 1815 AC 02/22 PO 2306 Amlodipine Besylate 2.5 MG ONCE ONE 02/23 1230 DC 02/23 PO 02/23 1231 1240 Aspirin 81 MG DAILY 02/23 1015 AC PO Aspirin 325 MG DAILY 02/20 1023 DC 02/22 PO 0900 Atorvastatin Calcium 40 MG 1700 02/20 1700 AC 02/22 PO 1541 Clopidogrel Bisulfate 75 MG DAILY 02/21 1000 AC 02/23 PO 1013 Diazepam 2 MG ONCE ONE 02/22 1645 DC 02/22 PO 02/22 1646 1734 Docusate Sodium 100 MG BID 02/21 2200 AC 02/23 PO 1013 Escitalopram Oxalate 20 MG DAILY 02/21 1000 AC 02/23 PO 1013 Gabapentin 600 MG AT BEDTIME 02/20 2200 AC 02/22 PO 2129 Heparin Sodium 5,000 UNIT Q8 02/20 1400 AC 02/23 (Porcine) SC 0515 Hydralazine HCl 10 MG ONCE ONE 02/22 2300 DC 02/22 IV 02/22 2301 2303 Hydralazine HCl 10 MG ONCE ONE 02/22 1730 DC IV 02/22 1731 Hydromorphone HCl 2 MG Q4P PRN 02/20 1030 AC 02/23 PO 0509 Insulin Aspart 0 TIDAC 02/23 0800 AC SC Losartan Potassium 50 MG DAILY 02/21 1000 AC 02/23 PO 0509 Magnesium Oxide 400 MG ONE ONE 02/22 1345 DC 02/22 PO 02/22 1346 1400 Metoprolol Succinate 50 MG DAILY 02/21 1000 AC 02/23 PO 1013 Morphine Sulfate 2 MG Q4P PRN 02/20 1030 AC IV Nitroglycerin 1 GM ONCE PRN 02/20 2100 AC TOP Ondansetron HCl 4 MG Q6P PRN 02/20 1030 AC IV Results Last 48 Hrs of Labs/Mics: Laboratory Tests 02/23/17 0450: Anion Gap 9, Estimated GFR > 60, Glucose 98, Calcium 9.1, Phosphorus 4.7 H, Magnesium 1.7, Total Bilirubin 0.5, AST 20, ALT 27, Albumin 3.6, CBC w Diff NO MAN DIFF REQ, RBC 4.26, MCV 83.4, MCH 27.2, RDW 14.6 H, MPV 9.5, Gran % 55.8, Lymphocytes % 28.0, Monocytes % 9.1, Eosinophils % 6.4 H, Basophils % 0.7, Absolute Granulocytes 3.8, Absolute Lymphocytes 1.9, Absolute Monocytes 0.6, Absolute Eosinophils 0.4, Absolute Basophils 0.1, PUBS MCHC 32.6 L 02/22/17 1011: Anion Gap 7, Estimated GFR > 60, BUN/Creatinine Ratio 20.0, Magnesium 1.6, CBC w Diff NO MAN DIFF REQ, RBC 4.03 L, MCV 83.3, MCH 27.7, RDW 14.6 H, MPV 8.9, Gran % 60.5, Lymphocytes % 22.2, Monocytes % 9.6 H, Eosinophils % 4.9, Basophils % 2.8 H, Absolute Granulocytes 4.4, Absolute Lymphocytes 1.6, Absolute Monocytes 0.7 H, Absolute Eosinophils 0.4, Absolute Basophils 0.2, PUBS MCHC 33.3 Microbiology 02/22 1010 UPPER RESP: Surveillance Culture - COMP 02/22 1010 GI: Surveillance Culture - COMP Assessment/Plan Assessment/Plan Assessment: 1. Perioperative Neurologic event 2. Day #2 post right CEA 3. History of bioprosthetic AVR 4. HTN 5. HLD 6. Mild normocytic anemia 7. Mild thrombocytopenia 8. History of PAF at time of AVR in 2013 9. Ventricular ectopy Recommendations: -I discussed the patient's case with Dr. cox. In the absence of any true blood pressure deficit between the upper extremities, I do not see any reason to perform a CTA of the chest today. -Amlodipine 2.5 mg by mouth given now to to be mildly elevated systolic blood pressure. -I will recheck the patient's blood pressure of 45 minutes. Assuming everything is stable, I believe the patient can be safely discharged home today. Continue telemetry? No
[2017-02-23] MEDS ORDERED: NORVASC2.5 M1 PO (13:29)
--- NOTE | 2017-02-23 14:03 | Surgical Discharge Summary ---
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 Daughter Services at Home: None What is Your Primary Language? Algerian Review of Systems: see H&P Hospital Course Course Attending Physician: GEREMIAS BURT MD Primary Care Physician: EDUARDO VALDEZ,[facility] Course: Mrs. Gr is a 71 year old female with diabetes, hypertension and hyperlipidemia. She was found to have a significant carotid stenosis on the right side. Electively, she was taken to the OR on 02/20/17 and underwent a right carotid endarterectomy by Dr. Burt. Postoperatively, she was transferred to the intensive care unit in stable condition. Neurovascular checks were performed every hour. She was able to void spontaneously. Nipride was used intermittently to keep her SBP less than 180. On POD #1, her family noticed that her speech seemed slightly slurred. The patient was noted to have a slight droop involving her left lip, and a stroke alert was called. She had a noncontrast CT along with a CTA of her head and neck , which did not show any acute abnormalities. was called at the time of the stroke alert and updated with the report. 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 saw her in co-management as well. Her home blood pressure medications were continued. Aspirin was restarted and plavix was added daily. She was downgraded to gen med after ruled out for stroke, and observed another night. Her blood pressure continue to remain labile and remained hypertensive intermitantly with systolic blood pressure ranging high 180-190's.she was intiated on additional blood pressure medication at a low dose per recommendation. Her bloood pressure improved with addtion on amlodipine 2.5 mg inaddition to her home medications. Once her blood pressurewas controlled it was determined that she will be discharged home. Please see full dictated discharge summary. Condition at Discharge: stable Discharge Disposition: home or self care Discharge instructions provided to patient/family: Yes Post discharge follow-up plan: Dr. Burt call for appointment DICTATED BY: KARI WEISS PA-C DATE/TIME DICTATED:02/20/171612 RETAIL BANKER:TIERRA DATE/TIME TRANSCRIBED:02/20/171612 REPORT NUMBER:[id number] CONFIDENTIAL, DO NOT COPY WITHOUT APPROPRIATE AUTHORIZATION. <Electronically signed by GEREMIAS CHU> 02/21/17 0530 CC: GEREMIAS SPENCER; KARI WEISS PA-C; CLARK COSTELLO PA-C; [place] BROOKE; GEREMIAS BURT MD Report Status: ISigned Report #: [id number] Page[p pg] ADDENDUM: GEREMIAS GUERRERO PA-C on 02/22/17 at 0821 Addendum Note Addendum PTS DISCHARGE WAS DELAYED ONE DAY DUE TO MINOR NEUROLOGIC EVENT. SHE FELT THOUGH HER SPEACH WAS A LITTLE SLOWER THAN NORMAL AND HAD MILD DYSARTHRIA THAT OCCURED AROUND 6:30AM ON 02/21. STROKE ALERT WAS CALLED, NEURO WAS CONSULTED. CT AND CTA OF HEAD/NECK WAS NEGATIVE AND DR VIVAS FELT likely related to local irritation/swelling in the neck due to surgery and should resolve spontaneously. SHE IS TOLERATING A DIET, SWALLOWING WITHOUT DIFFICLUTY, STILL HAS MILD R SIDE TONGUE DEVIATION AND ? TINY DROOP OF THE L SIDE OF THE CORNER OF THE MOUTH WITHOUT ANY ADDITIONAL NEUROLOGIC SYMPTOMS. SHE HAD NO FURTHER EVENT AND IS STABLE FOR DC HOME. DISCHARGE DATE CHANGED TO 02/22/17 Addendum Signed by: <Electronically signed by GEREMIAS CHU> 02/22/17 0821 Complications: POD #1 facial droop, tongue deviation, negative head CT POD#2 HTN episode to 220's systolic, bradycardia 30s POD#3 stabilized BP after adding Amlodipine 2.5 Allergies: Coded Allergies: adhesive (Intermediate, RASH 02/16/17) oxycodone (NAUSEA 08/07/16) Significant Procedures: 02/20/14 R carotid endarterectomy Disposition Summary Disposition Principal Diagnosis: R carotid stenosis Additional Diagnosis: Hypertension Discharge Disposition: home or self care Discharge Instructions General Discharge Information Code Status: Full Code Patient's Diet: Heart healthy Patient's Activity: as desired Follow-Up Instructions/Appts: Please follow up with Dr. Burt in 1 week. Please f/u with your medical affairs specialist in 1 week. Keep wound clean and dry. Dry dressing change once daily. You may shower on 02/24 as desired. Please report any of the following sx's to MD: Fever >101, redness, drainage, difficulty swallowing or speaking, chest pain, difficulty breathing. Medications at Discharge Discharge Medications: Continue taking these medications: Losartan (Cozaar) 50 MG TAB 1 Tablet ORAL DAILY Comments: Last Taken: 12/27/14 Time: 9AM Metoprolol Succinate (Metoprolol Succinate XL) 50 MG TAB.ER.24H 1 Tablet ORAL DAILY Comments: Last Taken: 12/27/14 Time: 9AM Metformin HCl (Metformin HCl ER) 500 MG TAB.ER.24H 1 Tablet ORAL DAILY Comments: ER OR REG RELEASE NOT NOTED; DOCUMENTED PER CMR DURING PRE-SX INTERVIEW Aspirin (Aspirin*) 325 MG TABLET 1 Tablet ORAL DAILY Gabapentin (Gabapentin) 600 MG TABLET 1 Tablet ORAL NIGHTLY Atorvastatin Calcium (Atorvastatin Calcium) 40 MG TABLET 1 Tablet ORAL DAILY Escitalopram Oxalate (Escitalopram Oxalate) 20 MG TABLET 1 Tablet ORAL DAILY Start taking the following new medications: Hydromorphone HCl (Hydromorphone HCl) 2 MG TABLET 2 Milligram ORAL EVERY 4 HOURS NEEDED as needed for PAIN Qty = 30 No Refills Clopidogrel Bisulfate (Plavix) 75 MG TABLET 75 Milligram ORAL DAILY Qty = 30 Refills = 1 Instructions: take daily, in addition to aspirin. continue as per Magnesium Oxide (Magnesium Oxide) 400 MG TABLET 1 Tablet ORAL DAILY Qty = 30 No Refills Amlodipine (Norvasc) 2.5 MG TABLET 1 Tablet ORAL DAILY Qty = 30 No Refills
== END 2017-02-23 16:08 | disposition home health service (06) | DRG 38 ==
LOC: ENRESERVDT → ENRESERVTM → SDA 07:00 → CRI 02-20 02:40 → ENPENDDIS 02-20 02:40 → 2NB 02-20 02:40 → SDA 02-20 07:00 → CRI 02-20 14:07 → 2NB 02-21 20:52 → CRI 02-22 09:52
PROVIDERS: Ophthalmology; Physician Assistant; Physician Assistant Surgical; ADMIT Surgery Vascular Surgery
PROC: 03UH0JZ Supplement Right Common Carotid Artery with Synthetic Substitute, Open Approach (ICD-10-PCS; principal; 2017-02-20)
PROC: 03CH0ZZ Extirpation of Matter from Right Common Carotid Artery, Open Approach (ICD-10-PCS; principal; 2017-02-20)
DX: I65.21 Occlusion and stenosis of right carotid artery (principal); Z68.41 Body mass index [BMI] 40.0-44.9, adult; E11.9 Type 2 diabetes mellitus without complications; R00.1 Bradycardia, unspecified; I10 Essential (primary) hypertension; Z79.84 Long term (current) use of oral hypoglycemic drugs; Z87.891 Personal history of nicotine dependence; Z95.2 Presence of prosthetic heart valve; E78.5 Hyperlipidemia, unspecified; E66.9 Obesity, unspecified; Z68.39 Body mass index [BMI] 39.0-39.9, adult
CPT/HCPCS: 2NBSP; CCU; 36415; 82436; 88304; 93005; 93010; J0131; J0360; J0690; J1100; J1644; J2405; J3490; J7040; J7042